=== PATIENT | male | born 1960 | race Caucasian/White ===

== ENCOUNTER 2022-11-07 09:01 | Emergency (ER) | payer OTHER ==
[~2022-11-07] VITALS: Ht 185.4 cm; Wt 140.6 kg
[2022-11-07] MEDS ORDERED: LASIX40 MG PO (09:18)
[2022-11-07] MEDS ORDERED: NORVASC5 MG PO (09:18)
[2022-11-07] MEDS ORDERED: JANTOVEN2.5 MG PO (09:18)
[2022-11-07] MEDS ORDERED: CRESTOR20 MG PO (09:19)
[2022-11-07] MEDS ORDERED: KAPSPARGO SPRIN25 MG PO (09:19)
[2022-11-07] MEDS ORDERED: ALDACTONE25 MG PO (09:19)
[2022-11-07] MEDS ORDERED: METFORMIN HCL500 M1 PO (09:20)
[2022-11-07] MEDS ORDERED: ZESTRIL40 MG PO (09:20)
[2022-11-07] MEDS ORDERED: NOVOLOG100 UNIT/1 SUB-Q (09:21)
[2022-11-07] MEDS ORDERED: PREDNISONE20 MG PO (11:45)
[2022-11-07] MEDS ORDERED: VENTOLIN HFA18 GM INH (11:45)
--- NOTE | 2022-11-08 21:34 | EKG ---
[facility] [address] [facility] [place] [address] Signed Undetermined rhythm Left axis deviation Anteroseptal infarct , age undetermined Abnormal ECG No previous ECGs available Confirmed by Kimberly Quan MD () on 11/08/2022 9:34:31 PM Electronically Signed By: KIMBERLY QUAN MD 11/08/22 2134 PATIENT NAME: HIMANSHU MINOR Electrocardiogram DATE OF : 58 PHYSICIAN: KIMBERLY QUAN MD REPORT #: [id number] REPORT IS CONFIDENTIAL AND NOT TO BE RELEASED WITHOUT AUTHORIZATION
== END 2022-11-07 15:45 | disposition home or self-care (01) ==
LOC: ED 09:01
DX: J44.1 Chronic obstructive pulmonary disease with (acute) exacerbation (principal); I25.2 Old myocardial infarction; I48.91 Unspecified atrial fibrillation; I10 Essential (primary) hypertension; Z79.899 Other long term (current) drug therapy; Z79.01 Long term (current) use of anticoagulants; Z79.4 Long term (current) use of insulin; Z20.822 Contact with and (suspected) exposure to COVID-19
CPT/HCPCS: 36415; 71045; 80053; 83880; 84484; 85025; 87502; 93005; 93010; 94640; 96374; 96375; 99285-25; C9803; J1815; J2930; U0003

== ENCOUNTER 2022-11-09 09:27 | Inpatient (IN) | payer OTHER ==
[~2022-11-09] VITALS: Ht 185.4 cm; Wt 126.8 kg
[~2022-11-09 09:27] MED LIST: ALDACTONE25 MG PO; CRESTOR20 MG PO; JANTOVEN2.5 MG PO; KAPSPARGO SPRIN25 MG PO; LASIX40 MG PO; METFORMIN HCL500 M1 PO; NORVASC5 MG PO; NOVOLOG100 UNIT/1 SUB-Q; PREDNISONE20 MG PO; VENTOLIN HFA18 GM INH; ZESTRIL40 MG PO
--- OUTSIDE RECORDS SUMMARY | 2022-11-09 09:35 | XMS ---
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 [facility] has no Care Guidelines for this patient. Kaity VISIT COUNT (12 MO.) 2 [facility] TOTAL 2 NOTE: Visits indicate total known visits. ED/[facility] VISIT TRACKING (12 MO.) [facility]22 09[facility] Emergency COMPLAINT: - SOB, IRREGULAR HEART RATE 11/07/2022 09:02 [facility] [place] TYPE: Emergency COMPLAINT: - SOB, IRREGULAR HEART BEAT INPATIENT VISIT TRACKING (12 MO.) No inpatient visits to display in this time frame [email or web address]
[2022-11-09] MEDS ORDERED: VENTOLIN HFA18 GM INH (15:22)
[2022-11-09] MEDS ORDERED: METOPROLOL SUCC25 MG PO (15:26)
[2022-11-09] MEDS ORDERED: INSULIN GL100 UNIT/2 SUB-Q (15:28)
[2022-11-09] MEDS ORDERED: NOVOLOG FL100 UNIT/1 SUB-Q (15:30)
--- NOTE | 2022-11-09 15:50 | NUR ---
PT IN ROOM WITH ADMIT ASSESSMENT COMPLETED.
--- NOTE | 2022-11-09 16:16 | NUR ---
PT ASSISTED INTO CHAIR IN ROOM PT REQUESTED TO USE HIS PHONE WHILE IT IS CHARGING. PT DENIES PAIN OR SHORTNESS OF BREATH. PT ON VAPOTHERM AT 25L @ 60%.
--- NOTE | 2022-11-09 16:16 | NUR ---
MED REC COMPLETE
--- NOTE | 2022-11-09 16:53 | NUR ---
PT BLOOD GLUCOSE GREATER THAN 400, AND PT REMAINS IN AFIB WITH RATES UP INTO THE 130S WITH ANY MOVEMENT. DR QUAN UPDATED VIA TELEPHONE. VERBAL ORDER TO GIVE LONG ACTING INSULIN SCHEDULED FOR LATER IN THE EVENING AT THIS TIME (SEE EMAR FOR ADMINISTRATION INFORMATION).
--- NOTE | 2022-11-09 17:05 | NUR ---
PT GIVEN INSULIN SLIDING SCALE AND LONG ACTING. PT DINNER BROUGHT IN TO ROOM. PT INFORMED OF PLAN TO GIVE THESE INSULIN DOSAGES AND THEN RECHECK BLOOD SUGAR IN ONE HOUR AND GIVE ADDITIONAL INSULIN WITH MEALS.
--- NOTE | 2022-11-09 18:11 | NUR ---
PT BLOOD SUGAR RECHECKED AND WAS 433. PT ASSISTED INTO BED AND VS OBTAINED. PT DENIES FURTHER NEEDS AT THIS TIME.
--- NOTE | 2022-11-09 18:41 | NUR ---
DR QUAN CALLED AND INFORMED OF BS OF 433. PER , HAVE CAREER PLACEMENT SERVICES COUNSELOR RECHECK BLOOD SUGAR AT 1930 AND CALL HIM BACK WITH THE RESULTS.
--- NOTE | 2022-11-09 21:00 | NUR ---
PATIENT PROVIDED WITH SCHEDULED MEDS. REPORTS FEELING "BETTER THAN WHEN I GOT HERE". DENIES SOB AT REST. TOLERATING VAPOTHERM 25L 50% Fi02. LUNG SOUNDS ARE COARSE IN UPPERS; DIM IN THE BASES. IV SL; WNL. DENIED PAIN OR GI UPSET. ACCU CHECK DONE; SSI PER ORDER. HR 115-130'S; SCHEDULED LOPRESSOR PROVIDED. PATIENT HAS A GOOD UNDERSTANDING OF THE PLAN OF CARE. CALL LIGHT IN REACH.
--- NOTE | 2022-11-09 21:42 | EKG ---
[facility] [address] [facility] [place] [address] Signed Atrial fibrillation with rapid ventricular response with premature ventricular or aberrantly conducted complexes Left axis deviation Anteroseptal infarct (cited on or before 07-NOV-2022) Abnormal ECG When compared with ECG of 07-NOV-2022 09:16, Previous EKG showed atrial fibrillation with RVR and PVCs Confirmed by Kimberly Quan MD () on 11/09/2022 9:42:00 PM Electronically Signed By: KIMBERLY QUAN MD 11/09/222141 PATIENT NAME: HIMANSHU MINOR Electrocardiogram DATE OF : 58 PHYSICIAN: KIMBERLY QUAN MD REPORT #: [id number] REPORT IS CONFIDENTIAL AND NOT TO BE RELEASED WITHOUT AUTHORIZATION
--- NOTE | 2022-11-09 22:15 | NUR ---
DISCUSSED PATIENT'S BLOOD GLUCOSE WITH MD. ORDERS TO CHECK AGAIN AT 0200 AND USE SSI COVERAGE. ALSO DISCUSSED PATIENT'S HR. ORDERS TO PROVIDE ORAL LOPRESSOR SCHEDULED FOR MORNING TONIGHT AND PRN IV LOPRESSOR. SEE EMAR.
--- NOTE | 2022-11-09 23:45 | NUR ---
PATIENT UP TO THE BATHROOM. 5L NC IN PLACE. PATIENT HAD BM AND RETURNED TO BED. MAINTAIN Sp02 >88% BUT BECAME INCREASINGLY SOB AND REQUEST A BREATHING TREATMENT. PATIENT SITTING AT EDGE OF BED. RT CALLED. LUNG SOUNDS ARE COASE THROUGHOUT. HR 120'S. PO LOPRESSOR PROVIDED PER ORDER.
--- NOTE | 2022-11-10 05:02 | NUR ---
PATIENT CALLED FOR A NEB TREATMENT. PATIENT TOLERATING VAPOTHERM 25L 50% Fi02. RT CALLED.
--- NOTE | 2022-11-10 07:20 | NUR ---
RECEIVED REPORT FROM OSWALDO COX. ASSUMING CARE OF PT. PT IN BED PLAYING ON PHONE WITH BLANKET COVERING HIM. PT CALL LIGHT WITHIN ROOM, IV SALINE LOCKED, VAPOTHERM AT 25L @ 50%.
--- NOTE | 2022-11-10 07:40 | NUR ---
PT ASSISTED INTO CHAIR IN ROOM WITH SBA. VAPOTHERM MOVED FOR PT COMFORT. PT MORNING MEDICATION AND ASSESSMENT COMPLETED. PT STATES HE HAS A HEADACHE.
--- NOTE | 2022-11-10 08:00 | NUR ---
WHILE PT WAS USING URINAL HIS HR INCREASED TO 140S. PT GIVEN PRN LOPRESSOR, PT DENIES CHEST PAIN AND SHORTNESS OF BREATH. PT SITTING IN CHAIR IN ROOM. PAIN MEDICATION PROVIDED FOR HEADACHE.
--- NOTE | 2022-11-10 09:14 | NUR ---
DR QUAN IN ROOM ASSESSING PT. DISCUSSED CARE MEASURES AND A1C.
--- NOTE | 2022-11-10 09:39 | NUR ---
IZA RT IN ROOM WITH PT. EDUCATING PT ON CORNET USE AND PT USING IT ON THE HIGHEST SETTING AND TOLERATING WELL.
--- NOTE | 2022-11-10 10:36 | NUR ---
PT RESTING IN CHAIR IN ROOM WITH CALL LIGHT WITHIN REACH. PT ON VAPOTHERM 25L @ 50%. PT WAS ASSISTED WITH BEDBATH BY GANG KNIFE FISH CHOPPER. STATES HE IS FEELING BETTER AND HAPPY TO BE CLEAN. DENIES PAIN OR SHORTNESS OF BREATH OR FURTHER NEEDS AT THIS TIME.
--- NOTE | 2022-11-10 11:50 | NUR ---
PT COMPLAINT OF FEELING UNWELL, PT ACCUCHECK AND VS OBTAINED. PT DENIES PAIN, NAUSEA, SHORTNESS OF BREATH. INFORMED THIS RN WOULD SPEAK WITH
--- NOTE | 2022-11-10 12:06 | NUR ---
PT GIVEN SLIDING SCALE INSULIN FOR ACCUCHECK OF 358. MD MADE AWARE OF ACCUCHECK AND PT COMPLAINT OF FEELING UNWELL. NO ADDITIONAL ORDERS AT THIS TIME, STATES IT IS DUE TO THE BODY REACTION TO NOW RECEIVING CARE. PT INFORMED. DENIES FURTHER NEEDS AT THIS TIME, PT EATING LUNCH.
--- NOTE | 2022-11-10 12:31 | NUR ---
PT LUNCH TRAY REMOVED, ATE 100%. PT SBA BACK TO BED PT REQUESTING TO TAKE A NAP. DENIES FURTHER NEEDS AT THIS TIME. CALL LIGHT AND BELONGINGS AT BEDSIDE.
--- NOTE | 2022-11-10 13:25 | NUR ---
PT SLEEPING DID NOT DISTRUB. WILL CHECK BACK
--- NOTE | 2022-11-10 13:30 | NUR ---
PT RESTING IN BED, CALL LIGHT WITHIN REACH AND BEDRAIL UP FOR SAFETY. PT EYES CLOSED AND RESPIRATIONS EVEN AND UNLABORED.
--- NOTE | 2022-11-10 14:33 | NUR ---
PT CALLED, REQUESTING TO USE BATHROOM. PT SBA TO BATHROOM AND EDUCATED ON HOW TO CALL WHEN FINISHED.
--- NOTE | 2022-11-10 14:42 | NUR ---
PT ASSISTED FROM BATHROOM AND INTO CHAIR IN ROOM. PT EDUCATED ON DISEASE PROCESS AND TREATMENTS, VERBALIZING UNDERSTANDING. AFTERNOON MEDICATION PROVIDED AND CALL LIGHT WITHIN REACH.
--- NOTE | 2022-11-10 15:30 | NUR ---
PT RESTING IN CHAIR IN ROOM PLAYING ON PHONE. CALL LIGHT WITHIN REACH AND PT BELONGINGS AT BEDSIDE. DENIES NEEDS AT THIS TIME.
--- NOTE | 2022-11-10 16:21 | NUR ---
PT PLACED ON IV ABX. SITTING IN CHAIR WAITING FOR DINNER. DENIES NEEDS AT THIS TIME. RT TITRATED HIS VAPOTHERM FI02 SETTING TO 40%. PT TOLERATING WELL.
--- NOTE | 2022-11-10 16:49 | NUR ---
DR QUAN INFORMED OF ELEVATED BLOOD SUGAR OF 380. NO ADDITIONAL ORDERS AT THIS TIME.
--- NOTE | 2022-11-10 17:45 | NUR ---
PT GIVEN INSULIN WITH DINNER. PT TOLERATED WELL, EATING MEAL. PT SITTING IN CHAIR IN ROOM WITH CALL LIGHT WITHIN REACH. VAPOTHERM AT 25L @40%.
--- NOTE | 2022-11-10 18:20 | NUR ---
PT SITTING IN CHAIR IN ROOM WATCHING TV AND PLAYING ON PHONE. CALL LIGHT WITHIN REACH AND PT BELONGINGS AT BEDSIDE. DENIES NEEDS AT THIS TIME.
--- NOTE | 2022-11-10 19:45 | NUR ---
PATIENT RESTING IN RECLINER PLAYING ON HIS PHONE. URNAL EMPTIED OF CLEAR YELLOW URINE. PATIENT DENIED ANY CONCERTS. ON VAPOTHERM 25L 40%. RT IN FOR NEB TREATMENT.
--- NOTE | 2022-11-10 21:15 | NUR ---
PATIENT PROVIDED SCHEDULED AND PRN MEDS. HR 105-115 AT REST. VS STABLE. LUNG SOUNDS ARE COARSE WITH SOME EX WHEEZE IN JANETH. PATIENT TOLERATING 6L NC. REPORTS FEELING IMPROVED. LESS SOB WITH ACTIVITY THEN PREVIOUS NIGHT. PATIENT ASSISTED INTO BED AND POSITIONED FOR COMFORT. PATIENT REQUIRES MOSTLY CORD MANAGEMENT. CALL LIGHT IN REACH. LIGHTS DIMMED.
--- NOTE | 2022-11-11 00:07 | NUR ---
PATIENT ASSISTED TO SIT UP AT THE EDGE OF THE BED. PROVIDED WITH A DIET APPROPRIATE SNACK. PATIENT TOLERATING 4L NC.
--- NOTE | 2022-11-11 00:40 | NUR ---
patient provided with prn neb treatment. lung sounds are a general rub on expiration throughout. rr 24. Sp02 95% on 4l NC
--- NOTE | 2022-11-11 04:39 | NUR ---
CALL LIGHT ANSWERED, pt UP FROM BATHROOM SBA AND BACK TO BED. pt REPORTS UNMEASURED VOID AND NO BM. OUTPUT CHARTED, NO DISTRESS NOTED, CALL LIGHT IN REACH. NO ADDITIONAL NEEDS OR CONCERNS VERBALIZED.
--- NOTE | 2022-11-11 07:48 | NUR ---
RECEIVED REPORT FROM OSWALDO COX. ASSUMING CARE OF PT. PT SALINE LOCKED WITH IV IN RIGHT HAND, ON 4L NC AND TOLERATED WELL. HR 110-130S. LUNG SOUNDS EXPIRATORY RUB IN ALL AREAS. BOWEL SOUNDS ACTIVE, DENIES PAIN OR NAUSEA. PT HAS IRREGULAR HEART BEAT WITH HISTORY OF AFIB. PT DENIES PAIN OR SHORTNESS OF BREATH AT THIS TIME. PT IS SITTING IN CHAIR EATING BREAKFAST. CALL LIGHT WITHIN REACH.
--- NOTE | 2022-11-11 08:00 | NUR ---
DISCUSSED PT HEART RATE WITH DR QUAN. PLAN ESTABLISHED TO INCREASE ORAL METOPROLOL TO BID (SEE EMAR).
--- NOTE | 2022-11-11 09:12 | NUR ---
PATIENT SITTING UP IN RECLINER, VITALS AND I&OS CHARTED. CALL LIGHT IN EASY REACH, NO OTHER NEEDS AT THIS TIME.
--- NOTE | 2022-11-11 09:22 | NUR ---
PT RESTING IN CHAIR IN ROOM. CALL LIGHT WITHIN REACH AND BELONGINGS AT BEDSIDE. PT ON 4L NC AND IV SALINE LOCKED. DENIES PAIN OR SHORTNESS OF BREATH AT THIS TIME.
--- NOTE | 2022-11-11 09:35 | NUR ---
PT RESTING IN BED, ULTRASOUND IN ROOM COMPLETING A CAROTID ULTRASOUND ON PT.
--- NOTE | 2022-11-11 10:25 | NUR ---
RT IN ROOM WITH PT COMPLETING A HOME QUALIFIER TEST.
--- NOTE | 2022-11-11 10:54 | NUR ---
PT AMBULATED TO BATHROOM AND BACK TO HAVE BOWEL MOVEMENT. HEART RATE UP INTO THE 130S WITH ACTIVITY AND PT VISIBLY SHORT OF BREATH.PT NOW RESTING INC HAIR. HEART RATE DOWN TO 110 AT REST. BREATHING LESS LABORED. CALL LIGHT WITHIN AND PERSONAL BELONGINGS WITHIN REACH.
--- NOTE | 2022-11-11 11:00 | NUR ---
PT SITTING IN CHAIR IN ROOM, CALL LIGHT WITHIN REACH AND BELONGINGS AT BEDSIDE. PT DENIES PAIN OR NEEDS. PT ON 3L NC AND TOLERATING WELL. IV SALINE LOCKED. PT USING CORNET TO ASSIST WITH LUNG MOVEMENTS.
--- NOTE | 2022-11-11 11:42 | NUR ---
PT COMPLAINT OF 5/10 HEADACHE. MEDICATION PROVIDED FOR PAIN. WILL REASSESS AFTER LUNCH FOR CONTINUED PAIN.
--- NOTE | 2022-11-11 12:59 | NUR ---
REPORT RECEIVED FROM BROOKE DELGADILLO. AWAITING PTS ARRIVAL TO MED/SURG.
--- NOTE | 2022-11-11 13:02 | NUR ---
REPORT GIVEN TO NIC COX.
--- NOTE | 2022-11-11 13:32 | NUR ---
PT ARRIVED FROM CCU BY CHAIR. PT ALERT AND ORINTED TO ALL. PT DENIES PAIN AND NAUSEA. IV FLUISHED AND SALINE LOCKED. ALCOHOL CAP APPLIED. INSPIARTOARY WHEEZE NOTED IN UPPER LOBED. TIGHT DEMINISHED SOUNDS IN LOWER LOBES. DYSPENY ON EXRETION CONTINUES. RT CALLED, AND TO BEDSIDE FOR BREATHING TREATMENT. OCCATIONAL COUGH ESPICALLY WITH ACAPELLA USE, NO NONPRODUCTIVE. PT REMAINS ON 4L O2 BY NC WITH OXGYEN SATUARTIONS 90-93%. AFIB RYTHEM CONTINUES ON MONITOR. HEART RATE 90-110'S. MINIMAL +1 EDEMA NOTED IN BLE. SKIN UNCHANGED. CASE MANAGEMENT TO BEDSIDE TO VISIT WITH PT. PT REQUESTS A NEBULIZER FOR DISCHARGE WELL, MESSAGE SENT TO MD. PT WEANED TO 3L O2 BY NC BY RT. NO ADDITONAL NEEDS AT THIS TIME. CALL LIGHT WITHIN REACH.
--- NOTE | 2022-11-11 13:37 | NUR ---
INTO SPEAK WITH PATIENT, PATIENT SITTING UP IN CHAIR. NIC COX AT BEDSIDE. CASE MANAGEMENT ASSESSMENT COMPLETED. PATIENT STATES HE LIVE ALONE IN AN RV WITH HIS DOGS. 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 PATIENT DOES NOT REQUIRE DME AT HOME. HE NORMALLY DOES NOT REQUIRE O2 AT HOME. DISCUSSED WITH PATIENT THAT PER HIS O2 QUALIFIER HE WILL NEED O2 AT DISCHARGE. ADVISED OF O2 COMPANIES, PATIENT WOULD LIKE TO GO TO [facility]. PATIENT STATES HE WOULD ALSO LIKE THE SMALLEST CONCENTRATOR POSSIBLE HE LIVES IN A SMALL RV. ADVISED I WILL SEND O2 ORDERS TO [facility] AND CONTACT THEM TO DISCUSS. PATIENT STATES HE HAS NO FINANCIL OR RESOURCE NEEDS AT THIS TIME.
--- NOTE | 2022-11-11 14:17 | NUR ---
FACESHEET, O2 QUALIFIER, H&P AND PROGRESS NOTES FAXED TO [facility] .
--- NOTE | 2022-11-11 14:41 | NUR ---
HOURLY ROUNDING: PT REMAINS UP TO CHAIR, RESTING WITH EYES CLOSED. PT AWAKENS TO MOVEMENT IN THE ROOM. URINAL EMPTIED OF 450ML CLEAR YELLOW URINE. PT DENIES PAIN AND NAUSEA. PT TOELRATING 3L O2 BY NC WITH OXGYEN SATURATION OF 90%. PT DENIES ADDITIONAL REQUESTS OR COMPLAINTS. CALL LIGHT WIHTIN REACH.
--- NOTE | 2022-11-11 16:02 | NUR ---
AROUND 1545 PATIENT GOT INTO THE SHOWER. I WASHED HIS BACK AND FEET. PATIENT DID THE REST. CHANGED HIS TELE LEAD STICKERS. PATIENT IS SITTING UP IN CHAIR.
--- NOTE | 2022-11-11 16:15 | NUR ---
THIS RN TO ROOM TO CHECK ON PT. MEDICATION DUE. PT FINISHED WITH SHOWER AND BACK TO CHAIR. PT STATES "I FEEL SO GOOD AFTER THAT SHOWER." PT DENIES PAIN AND NAUSEA. OXGYEN SATURATION OF 90% ON 3L O2 BY NC. MEDICATION GIVEN (SEE MAR). IV ASSESSED, WNL. NO ADDITIONAL REQUESTS OR COMPLAINTS. CALL LIGHT WITHIN REACH. BED RAILS UP.
--- NOTE | 2022-11-11 17:15 | NUR ---
PT FINISHED WITH DINNER. INSULIN GIVEN. PT DENIES PAIN AND NAUSEA. PT CONTINUES TO TOLERATE 3L O2 BY NC WITH OXGYEN SATURATION OF 90%. PT DENIES ADDITIONAL REQUESTS OR COMPLAINTS. CALL SERGIO DAVID.
--- NOTE | 2022-11-11 17:23 | NUR ---
PT HERE FOR HUYPOXIC RESPIRATORY FAILURE AND COPD EXACERBATION. PT UP WITH STAND BY ASSIST TO SHOWER, RESTROOM, AND CHAIR THIS SHIFT. PT TOLERATING 60G CARB DIET WITH EXCELLENT APPITITE. BLOOD SUGAR CHECKS WITH SCHEDULED AND SLIDING SCALE INSULIN GIVEN. TELEMETRY MONITORING IN AFIB RYTHEM WITH HEART RATE 90-110'S, MEDICATION GIVEN. PT REMAINS ON 3-4 L O2 BY NC THIS SHIFT TO MAINTAIN OXGYEN SATRUATIONS 88-93%. PT TOLERATES 3L O2 BYNC WELL EVEN WITH ACITVITY. IV ABX GIVEN. HOME OXYGEN QUALIFICATION COMPLETED.PT VOIDING QUANTITIY SUFFICIENT. PT USES CALL LIGHT AND MAKES NEEDS KNOWN.
--- NOTE | 2022-11-11 17:56 | NUR ---
PT CALL LIGHT ON. PT REPORTS HIS RIGHT HAND IV SITE IS PAINFUL. IV ASSESSED, FLUSHES WELL BUT CONTINUES TO BE PAINFUL. NO SWELLING NOTED. IV DC'D PER PROTOCOL. NEW IV STARETED TO LEFT FORARM PER PROTOCOL, BRISK BLOOD RETURN NOTED. REMAINDER OF IV ABX INFUSING GOING THROUGH LEFT FORARM IV SITE. PT DENIES ADDITIONAL PAIN OR NAUSEA. VITAL SIGNS STABLE. NO ADDITIONAL REQUESTS OR COMPLAINTS. CALL LIGHT WITHIN REACH.
--- NOTE | 2022-11-11 18:07 | NUR ---
PUMP ALARMING, INFUSION AND FLUSH COMPLETE. IV FLUSHED AND SALINE LOCKED, ALCOHOL CAP APPLIED. PT DENIES PAIN AND NAUSEA. EDUCATION DONE WITH PT REGARDING HOME OXGYEN USE. PT VERBLAIZES UNDERSTANDING AND STATES HIS QUESTIONS HAVE BEEN ANSWERED. PT DECLINES GETTING BACK TO BED AT THIS TIME STATING HE LIKES BEING UP IN THE CHAIR. PT DENIES ADDITONAL REQUESTS OR COMPLAINTS. CALL LIGHT WITHIN REACH.
--- NOTE | 2022-11-11 19:41 | NUR ---
received report from offgoing shift, hourly rounding initiated.
--- NOTE | 2022-11-11 21:23 | NUR ---
IN PT ROOM FOR MEDICATION ADMINISTRATION AND ASSESSMENT. PT NO COMPLAINT OF PAIN OR DISCOMFORT, CALL LIGHT IN REACH.
--- NOTE | 2022-11-12 00:07 | NUR ---
PT TELEMETRY SHOWED HR 140+ - WENT TO ROOM TO CHECK ON PT AND HE WAS FOUND TO BE UP USING URINAL, NO COMPLAINT OF PAIN OR DISCOMFORT, ASYMPTOMATIC. PT DENIED DISCOMFORT, WILL CONTINUE TO MONITOR.
--- NOTE | 2022-11-12 00:12 | NUR ---
IN PT ROOM FOR ROUNDING, PT RESTING, BREATHING EVEN AND UNLABORED, NO COMPLAINT OF PAIN OR DISCOMFORT, CALL LIGHT IN REACH.
--- NOTE | 2022-11-12 02:01 | NUR ---
IN PT ROOM FOR ROUNDING. PT RESTING, BREATHING EVEN AND UNLABORED, CALL LIGHT IN REACH.
--- NOTE | 2022-11-12 04:17 | NUR ---
IN PT ROOM TO RESET TELEMETRY LEADS. PT RESTING EASY, BREATHING EVEN AND UNLABORED, CALL LIGHT IN REACH.
--- NOTE | 2022-11-12 05:32 | NUR ---
IN PT ROOM FOR ROUNDING, PT RESTING COMFORTABLY, CALL LIGHT IN REACH, BREATHING EVEN AND UNLABORED.
--- NOTE | 2022-11-12 07:04 | NUR ---
REPORT RECEIVED FROM BROOKE MARTÍNEZ. PT UP TO CHAIR. PT REPORTS 5/10 HEADACHE. COOL CLOTH PROVIDED, COFFEE PROVIDED. PT REQUESTS TYELNOL, SEE MAR FOR MEDICATION GIVEN. PT DENIES ADDDITIONAL REQUESTS OR COMPLAINTS. CALL LIGHT WITHIN REACH.
--- NOTE | 2022-11-12 07:34 | NUR ---
MORNING ASSESSMENT AND MEDICATION DUE. PT REMAINS UP TO CHAIR. PT REPORTS HEADACHE IS IMPROVING, NOW 2/10. ADDITIONAL COFFEE PROVIDED. PT DENIES NAUSEA. PT ALERT AND ORIENTED TO ALL. LUNG SOUNDS TIGHT IN LOWER LOBES WITH EXPIRATROY WHEEZE NOTED, RUB HEARD IN UPPER LOBES. BREATHING TREATEMENT OFFERED AND PT ACCEPTS, RT TO BEDSIDE WITH NEBULIZER. PT USING ACAPELLA. PT REPORTS COUGHING UP SMALL AMOUNTS OF THICK SILVA SPUTUM, NONE SEEN AT THISTIME. PT REPORTS HE CONTINUES TO HAVE OCCATIONAL DIZZINESS AND DISEQUALIBRIUM. PT REPORTS IT USUALLY RESOLVES WITH TIME AND DEEP BREATHS. AFIB CONTINUES ON TELEMETRY MONITORING WITH HEART RATE IN THE 90'S AT THIS TIME. MEDICATIONS GIVEN. PHARMACIST CALLED REGARDING ENOXAPARIN DOSE. PHARMACIST REQUESTS WEIGHT. STANDING WEIGHT TAKEN AND DOSE ADJUSTMENTS MADE. PT REMAINS UP TO CHAIR. NO ADDITIONAL REQUESTS OR COMPLAINTS. CALL LIGHT WITHIN REACH.
--- NOTE | 2022-11-12 08:03 | NUR ---
PATIENT IN CHAIR PREVIOUS TO SHIFT. URINAL EMPTIED. AM CARE AND ACU CHECK COMPLETED. CALL LIGHT WITHIN REACH.
--- NOTE | 2022-11-12 09:12 | NUR ---
PATIENT IN CHAIR AFTER MEAL. VITALS AND I/O'S COMPLETED. CALL LIGHT WITHIN REACH.
--- NOTE | 2022-11-12 09:26 | NUR ---
HOURLY ROUNDING: PT REMAINS UP TO CHAIR. PT REPORTS HEADACHE REMAINS WELL CONTROLLED AT 2/10 AT THIS TIME. PT DENIES NEED FOR ADDITIONAL PAIN MEDICATION. PT REPORTS HE SPOKE WITH THE DOCTOR DURING HIS ROUNDS AND VERBALIZES UNDERSTANDING OF PLAN OF CARE. PT STATES ALL HIS QUESTIONS HAVE BEEN ANSWERED. STAND BY ASSIST UP TO RESTROOM TO VOID. PT PERFORMS SELF THOMAS CARE. PT MAINTAINS OXGYEN SATURATIONS WITH ACITVITY AND REPORTS SHORTNESS OF BREATH WITH ACTIVITY HAS IMPROVED. HEART RATE UP TO 130-140'S WITH ACTIVITY. PT REPORTS HE DID FEEL DIZZY AT TIMES WITH ACTIVITY. HEART RATE RETURNS TO 100-110'S ONCE BACK TO CHAIR ADN RESTING. OXGYEN SATURATION MAINTAINS 89-93% ON 3L O2 BY NC. PT DENIES ADDITIONAL REQUESTS OR COMPLAINTS. CALL LIGHT WITHIN REACH.
--- NOTE | 2022-11-12 09:54 | NUR ---
DR QUAN UPDATED REGARDING PTS HEART RATE WITH ACTIVITY AND AT REST WELL DIZZINESS AND ASSESSMENT. MEDICAITON ADJUSTMENTS MADE.
--- NOTE | 2022-11-12 10:07 | NUR ---
MEDICATION GIVEN TO PT. PT REMAINS UP TO CHAIR. HEART RATE REMAINS 100-120'S. PT UPDATED ON MEDICATION ADJUSTMENTS AND PLAN OF CARE. PT VERBALIZES UNDERSTANIND AND STATES HIS QUESTIONS HAVE BEEN ANSWERED. NO ADDITONAL REQUESTS OR COMPLAINTS AT THIS TIME. CALL LIGHT WITHIN REACH.
--- NOTE | 2022-11-12 10:10 | NUR ---
enoxaparin dose changed to 120mg BID as weight = 126kg.
--- NOTE | 2022-11-12 11:16 | NUR ---
THIS RN TO ROOM TO CHECK ON PT. PT REMAINS UP TO CHAIR, RESTING WITH EYES CLOSED. RESPIRATIONS EVEN AND UNLABORED. PT ALLOWED TO REST. CALL LIGHT WITHIN REACH. BED RAILS UP.
--- NOTE | 2022-11-12 12:00 | NUR ---
LUNCH DELIVERED TO PT. PT AWAKENS TO MOVEMENT IN THE ROOM TO EAT. MEDICATION GIVEN. PT REPORTS "FEELING BETTER" AFTER HIS NAP. PT DENEIS PAIN AND NAUSEA. NO ADDITIONAL REQUESTS OR COMPLAINTS. CALL LIGHT WITHIN REACH.
--- NOTE | 2022-11-12 13:22 | NUR ---
AFTERNOON ASSESSMENT AND MEDICATION DUE. PT REMAINS UP TO CHAIR. PTS FRIEND, BONILLA, ARRIVED TO VISIT WITH PT. PT DENEIS PAIN AND NAUSEA, STATES HEADACHE HAS RESOLVED. PT ALERT AND ORIENTED TO ALL. PT DENIES ANY SIGNS OR SYMPTOMS OF NEUROPATHY. PT REPORTS HE WOULD LIKE TO AMBULATE AFTER HIS VISIT WITH HIS FRIEND. LUNG SOUNDS CLEAR IN UPPER LOBES, TIGHT IN BASES WITH INSPIRATORY WHEEZE NOTED IN RIGHT LOWER LOBE. LOWER LOBES DEMINISHED. LOOSE COUGH CONTINUES AT TIMES. SMALL AMOUNTS OF SILVA SPUTUM NOTED. PT CONTINUES TOLERATING 3L O2 BY NC WITH OXGYEN SATURATIONS 89-93%. TELEMETRY MONITORING CONTINUES. HEART RATE CURRENTLY 90-110'S. PT REPORTS FEELINGS OF DIZZINESS HAVE IMPROVED, LESS FREQUENT THIS AFTERNOON. +1 PITTING EDEMA UNCHANGED TO BLE. SHOWER OFFERED, DECLINED. PT CONTINUES VISISTING WITH HIS FRIEND. NO ADDITIONAL REQUESTS OR COMPLAINTS. CALL LIGHT WITHIN REACH.
--- NOTE | 2022-11-12 14:09 | NUR ---
PATIENT IN CHAIR VISITING WITH FRIEND. VITALS AND I/O'S COMPLETED. CALL LIGHT IN REACH.
--- NOTE | 2022-11-12 14:51 | NUR ---
THIS RN TO ROOM TO CHECK ON PT. PT REMAINS UP TO CHAIR. STAND BY ASSIST UP TO VOID. PT VOIDS 550ML CLEAR YELLOW URINE WIHT OUT ISSUE. HEART RATE REMAINS 100-120'S WITH ACTIVITY. PT REPORTS NO DIZZINESS WITH ACTIVITY THIS TIME. PT DENIES PAIN AND NAUSEA. PT DENIES SHORTNESS OF BREATH. NO ADDITONAL NEEDS AT THIS TIME. CALL LIGHT WITHIN REACH.
--- NOTE | 2022-11-12 16:13 | NUR ---
MEDICATION DUE. PT BACK FROM WALK AND REPORTS AMBULATION WENT REALLY WELL. PT REPORTS HE WAS ABLE TO "MAKE A COUPLE ROUNDS" AROUND THE [place] AND "FELT A BIT WINDED IN THE END" BUT NOTED THAT HE WAS NOT DIZZY AT ALL. HEART RATE CURRENTLY 100-110'S. PT DENIES PAIN AND NASUEA. MEDICATION GIVEN. NO ADDITIONAL REQUESTS OR COMPLAINTS. CALL LIGHT WITHIN REACH.
--- NOTE | 2022-11-12 16:28 | NUR ---
PT HERE FOR HYPOXIC RESPIRATORY FAILURE AND COPD EXACERBATION. PT UP WITH STAND BY ASSIST IN [place], TO RESTROOM, AND CHAIR THIS SHIFT. PT TOLERATING 60G CARB DIET WITH EXCELLENT APPITITE. BLOOD SUGAR CHECKS WITH SCHEDULED AND SLIDING SCALE INSULIN GIVEN. TELEMETRY MONITORING IN AFIB RYTHEM WITH HEART RATE 90-130'S, MEDICATION ADJUSTED THIS SHIFT WITH IMPROVED HERAT RATE THIS AFTERNOON. PT REMAINS ON 3L O2 BY NC THIS SHIFT AT REST AND WITH ACTIVITY TO MAINTAIN OXGYEN SATRUATIONS 88-93%. IV ABX GIVEN. PT VOIDNG LARGE AMOUNTS, PO LASIX GIVEN. EDUCATION DONE WITH PT REGARDING FLUID BALANCE AND HOME OXYGEN USE. PRN NEBULIZER TREATEMENTS GIVEN. PT REPORTS DIZZINESS AT TIMES, IMPROVED WITH MEDICAITON ADJUSTMENTS. PT USES CALL LIGHT AND MAKES NEEDS KNOWN.
--- NOTE | 2022-11-12 16:44 | NUR ---
PT WAS ABLE TO AMBULATE W/STBY ASSIST USING O2 TANK AT 4LNC/PULSEOX READ STEAY AT 93-94. HE AMBULATED 1.5X AROUND UNIT, NO COMPLAINTS OF PAIN OR UNSTEDINESS. BREATHING QUICKENED NEAR END OF WALK SO HE WANTED TO GO BACK TO HIS CHAIR AND TRY AGAIN LATER. HE STATED THAT HE FELT BETTER BEING ABLE TO GET UP AND WALK LONGER JUST OUT OF BREATH QUICKER THAN HE EXPECTED. PT BACK IN RELICNER, FEET ELEVATED, 94 O2 @ 3LNC. CALL LIGHT IN HAND.
--- NOTE | 2022-11-12 16:49 | NUR ---
DR JIANG CALLED REGARDING PTS BLOOD SUGAR. ORDERS GIVEN TO ADJUST PTS SLIDING SCALE INSULIN TO A "HIGH" SCALE RATHER THAN "MODERATE." PHARMACIST CALLED AND IS MAKING ADJUSTMENTS, REPEAT BACK PERFORMED.
--- NOTE | 2022-11-12 17:00 | NUR ---
PT DUE FOR INSULIN. 13 UNITS OF SS GIVEN, WITH 10 UNITS BOLUS. PT IS UP IN CHAIR, EATING DINNER. EDUCATION PROVIDED RE: S/SX OF HYPOGLYCIEMA. PT VERBALIZED UNDERSTANDING.
--- NOTE | 2022-11-12 17:41 | NUR ---
PATIENT IN CHAIR AFTER MEAL. VITALS AND I/O'S COMPLETED. CALL LIGHT WITHIN REACH.
--- NOTE | 2022-11-12 17:58 | NUR ---
PTS HEART RATE NOTED TO BE 130-140'S ON MONITORING. THIS RN TO ROOM. PT UP TO RESTROOM TO VOID, INDEPENDANTLY. PT BACK TO CHAIR AND HEART RATE RECOVERS TO 110'S WITHIN 1 MINUTE. PT DENIES ANY DIZZINESS WITH ACTIVITY. OXGYEN SATURATION REMAINS 90-93% ON 3L O2 BY NC. PT PAXTON PAIN OR NAUSEA. CALL LIGHT WITHIN REACH. NO ADDITIONAL REQUESTS OR COMPLAINTS.
--- NOTE | 2022-11-12 18:31 | NUR ---
THIS RN TO ROOM TO CHECK ON PT. PT REMAINS UP TO CHAIR, REPORTS HE IS "DOZING." PT DENIES PAIN AND NAUSEA. HEART REAT 106 AT THIS TIME ON TELEMETRY MONITORING WITH SOFIE MORGAN. PT DENIES REQUESTS OR COMPLAINTS. CALL LIGHT WITHIN REACH.
--- NOTE | 2022-11-12 19:14 | NUR ---
received report from offgoing shift, hourly rounding initiated.
--- NOTE | 2022-11-12 21:25 | NUR ---
in pt room for medication administration, vs, assessment. pt resting in chair, vs stable, no complaint of pain or discomfort. pt call light in reach.
--- NOTE | 2022-11-12 23:08 | NUR ---
IN PT COY FOR ROUNDING. PT RESTING ON BACK, BREATHING EVEN AND UNLABORED. CALL LIGHT IN REACH
--- NOTE | 2022-11-13 01:36 | NUR ---
in pt room for rounding. pt resting on side, call light in reach, telemetry in place. pt has no complaint of pain or discomfort.
--- NOTE | 2022-11-13 03:10 | NUR ---
IN PT ROOM FOR ROUNDING. PT RESTING ON SIDE, TELEMETRY IN PLACE, BREATHING EVEN AND UNLABORED, NO COMPLAINT OF PAIN OR DISCOMFORT, CALL LIGHT IN REACH.
--- NOTE | 2022-11-13 06:01 | NUR ---
IN PT ROOM FOR VS AND I&O'S. REST PT TELEMETRY, NOTICED A SPOT ON PT RLQ ABDOMEN THAT WAS BLEEDING. CLEANED WITH SALINE AND APPEARS TO BE SITE OF LOVENOX INJECTION BLEEDING, COVERED WITH GAUZE BANDAGE AND TAPE. PT UP TO CHAIR, CALL LIGHT IN REACH, NO COMPLAINT OF PAIN OR DISCOMFORT.
--- NOTE | 2022-11-13 07:35 | NUR ---
REPORT RECEIVED FROM BROOKE MARTÍNEZ. PT UP TO CHAIR. AWAKE AND ALERT. PT REPORTS 5/10 HEADACHE AND REQUESTS PAIN MEDICATION WITH HIS MORNING MEDICATIONS. PT DENIES NASUEA OR SHORTNESS OF BREATH. NO ADDITIONAL REQUESTS OR COMPLAINTS. CALL LIGHT WITHIN REACH.
--- NOTE | 2022-11-13 07:40 | NUR ---
PT AWAKE IN CHAIR WATCHING TV. CALL LIGHT IN REACH. NO FURTHER NEEDS AT THIS TIME.
--- NOTE | 2022-11-13 08:04 | NUR ---
MORNING ASSESSMENT AND MEDICATION DUE. PT UP TO CHAIR, BREAKFAST DELIVERED TO PT. PT CONTINUES TO REPORTS 5/10 HEADACHE. TYELNOL GIVEN AND COFFEE PROVIDED. PT DENIES NAUSEA. PT ALERT AND ORIENTED TO ALL. PT DENIES ANY DIZZINESS OR CONFUSTION TODAY. SOFIE MORGAN CONTINUES ON TELEMETRY MONITORING WITH RATE 80-90'S AT THIS TIME. LUNG SOUNDS CLEAR THROUGHOUT, NO WHEEZES NOTED. PT REPORTS "YEAH, I FEEL LIKE I'M BREATHING BETTER TODAY." LOWER LOBES TIGHT AND DEMINISHED BUT CLEAR. OCCATIONAL LOOSE COUGH WITH SILVA SPUTUM PER PT. NO COUGH OR SPUTUM NOTED AT THIS TIME. OXGYEN SATURATIONS 96% ON 3L O2 BY NC. PT WEANED TO 2L O2 BY NC TO PREVENT CO2 RETENTION. PT MAINTAINS OXGYEN SATUARTION 89-94% ON 2L O2 BY NC. EDEMA REMAINS +1 TO BLE, APPERAS MILDLY IMPROVED. BRUISES NOTED OVER ABDOEN AT LOVENOX INJECTIONS SITES WELL TWO SMALL PIN POINT SCABS TO RIGHT SIDE OF ABDOMEN THAT ARE LEAKING SMALL AMOUNTS OF RED DRAINAGE. GAUZE AND TAPE APPLIED. PT REPORTS HE FEELS READY FOR DISCHARGE STATING, "I FEEL BETTER NOW THAN I HAVE IN QUITE A WHILE ACTUALLY." PT EATING BREAKFAST. NO ADDITIONAL REQEUSTS OR COMPLAINTS. MEDICATIONS GIVEN. CALL LIGHT WITHIN REACH.
--- NOTE | 2022-11-13 09:32 | NUR ---
THIS RN TO ROOM TO CHECK ON PT. PT UP TO CHAIR. PT REPORTS HEADACHE IS IMPROVING NOW 01/13. PT DECELINES ADDITIONAL COFFEE OR COOL CLOTHES. PT DENIES NEED FOR ADDITIONAL PAIN MEDICATION. PT REPORTS HE WOULD LIKE TO NAP A BIT SINCE HE "DIDN'T SLEEP VERY WELL LAST NIGHT." PT REPORTS HE SPOKE WITH THE DOCTOR AND VERBALIZES UNDERSTANDING OF PLAN OF CARE AND STATES HIS QUESTIONS HAVE BEEN ANSWERED. PT CONTINUES TO TOELRATE 2L O2 BY NC WITH OXGYEN SATURATIONS OF 93%. HEART RATE CONTINUES IN AFIB RYTHEM ON TELEMETRY MONITORING WITH HEART RATE IN THE 80'S. PT DENIES ADDITIONAL REQUESTS OR COMPLAINTS. CALL LIGHT WITHIN REACH.
--- NOTE | 2022-11-13 10:01 | NUR ---
THIS RN TO ROOM WITH DR QUAN FOR ROUNDS. PT UPDATED ON PLAN OF CARE AND STATES HIS QUESTIONS HAVE BEEN ANSWERED. PT DENIES ADDITIONAL REQUESTS OR COMPLAINTS. CALL LIGHT WITHIN REACH.
--- NOTE | 2022-11-13 10:36 | NUR ---
PT UP TO AMBULATE IN [place] X 1 LAP AND DOWN CARPETED HALLWAY. HEART RATE STABLE FORM 90-110. AFIB RYTHEM CONTINUES. PT RETURNS TO RATE OF 80'S ONCE RESTING.OXGYEN SATUARTION 93% ON 3L O2 BY NC WHILE AMBULATING AND 93% ON 2L ONCE RETURNED TO ROOM AND RESTING. PT DENIES PAIN AND NAUSEA PT STATES "I FEEL SO MUCH BETTER THAN BEFORE I CAME IN." PT STEADY ON FEET. NOW BMAT LEVEL 4. PT AWARE OF OXYGEN TUBING AND HOW TO MANAGE TUBING. STATES HE HAS EXPERIENCE FROM HOME. NO ADDITIONAL REQUESTS OR COMPLAINTS. CALL LIGHT DARCIMiracor Medical SystemsALEKSANDRA DAVID.
--- NOTE | 2022-11-13 11:18 | NUR ---
THIS RN TO ROOM TO CHECK ON PT. PT RESTING WITH EYES CLOSED, UP TO CHAIR. RESPIRATIONS EVEN AND UNLABORED. PT ALLOWED TO REST. CALL LIGHT WITHIN REACH.
--- NOTE | 2022-11-13 11:48 | NUR ---
LUNCH DELIVERD TO PT. BLOOD SUGAR CHECKED AND SCHEDULED WITH SLIDING SCALE INSULIN GIVEN. PT AWAKE AND EATING LUNCH. PT DENIES PAIN AND NAUSEA. NO ADDITIONAL NEEEDS AT THIS TIME. EDUCAITON DONE WITH PT REGARDING MONITORING CARBOHYDRATE INTAKE AND BLOOD SUGAR MANAGEMENT. PT VERBALIZES UNDERSTANDING AND IS ABLE TO REPEAT BACK THE INSLUIN HE USUALLY TAKES AT HOME INCLUDING 5 UNITES OF ASPART WITH EACH MEAL AND 39 UNITS OF LONG ACTING INSULIN DAILY AT NIGHT. PT DENIES ADDITIONAL NEEDS. CALL LIGHT WITHIN REACH.
--- NOTE | 2022-11-13 13:23 | NUR ---
AFTERNOON ASSESSMENT AND MEDICAITON DUE. PT FINSHED WITH LUNCH, REMAINS UP TO CHAIR. PT DENIES PAIN AND NASUEA. PT ALERT AND ORIRENTED TO ALL AND CONTINUES TO STATE HE IS FEELIGN "REALLY GOOD." OXGYEN SATURATION NOTED TO BE 96% ON 2L O2 BY NC. ROOM AIR TRIAL ATTEMPTED. PT MAINTAINS OXYGEN SATURATIONS 89-93%. LUNG SOUNDS CORSE IN UPPER AIRWAYS, CLEARS WITH COUGH AND ANDUJAR SPUTUM PRODUCTION. UPPER LOBES NOW CLEAR. INSPIRATORY WHEEZE NOTED IN RIGHT LOWER LOBE. DEMINISHED TIGHT SOUNDS IN LEFT LOWER LOBE. PT REQUESTS A BREATHING TREATMENT. RT CALLED. HEART SOUNDS REMAIN IRREGULAR WITH HEART RATE IN THE 80-90'S. 86 APICAL HEART RATE AT THIS TIME. PT DEMONSRATES USE OF ACCAPELLA X10. BRUISES AND SCABS TO ABDOMEN REMAIN UNCHNAGED. PT DENIES ADDITIONAL REQUESTS OR COMPLAINTS. CALL LIGHT WITHIN REACH.
--- NOTE | 2022-11-13 14:34 | NUR ---
PT IS UP IN CHAIR, PLAYING ON HIS PHONE. HE REPORTS NO SOB, DIFFICUTLY BREATHING, OR DIZZINESS. SPOT CHECK OF O2, 87% ON ROOM AIR. PT DECLINED TO REPLACE O2. REPORTED HE HAD JUST COME BACK FROM THE BATHROOM AND HAD BEEN AMBULATING IN THE ROOM. WILL SPOT CHECK AGAIN. NO ADDITIONAL NEEDS OR CONCERNS.
--- NOTE | 2022-11-13 15:01 | NUR ---
REPORT GIVEN TO BROOKE DUMONT WHO IS ASSUMING CARE OF PT. PT UPDATED ON PLAN OF CARE. PT NOTED TO BE 85-87% ON ROOM AIR. PT PLACED BACK ON 1L O1 BY NC AND OXGYEN SATURATIONS CLIMB TO 90-92%. PT DEMONSTRATES USE OF ACAPELLA. PT DENIES PAIN AND NAUSEA. NO ADDITIONAL REQUESTS OR COMPLAINTS. CALL LIGHT WITHIN REACH.
--- NOTE | 2022-11-13 15:02 | NUR ---
PT HERE FOR HYPOXIC RESPIRATORY FAILURE AND COPD EXACERBATION. PT UP WITH STAND BY ASSIST IN [place], TO RESTROOM, AND CHAIR THIS SHIFT. PT TOLERATING 60G CARB DIET WITH EXCELLENT APPITITE. BLOOD SUGAR CHECKS WITH SCHEDULED AND SLIDING SCALE INSULIN GIVEN. TELEMETRY MONITORING DC'D PTS HEART RATE IS MUCH IMPROVIED WITH RATE NOW 80-90'S AT REST AND 90-110 WITH ACTIVITY. ROOM AIR TRIAL ATTEMPTED THIS SHIFT WITH OXGYEN SATUARTIONS EVENTUALLY DROPPING TO 85%. PT REMAINS ON 1L O1 BY NC AT REST TO MAINTAIN OXGYEN OXGYEN SATRUATIONS 89-93%. IV ABX GIVEN. PT VOIDING LARGE AMOUNTS, PO LASIX GIVEN. EDUCATION DONE WITH PT REGARDING FLUID BALANCE AND DIABETIES PRN NEBULIZER TREATEMENTS GIVEN. PT DENIES DIZZINESS THIS SHIFT. PT USES CALL LIGHT AND MAKES NEEDS KNOWN.
--- NOTE | 2022-11-13 15:12 | NUR ---
PT IS SLEEPING IN HIS CHAIR, O2 ON, NO DISTRESS NOTED. REPORT COMPLETE WITH OFF-GOING NURSE. NO NEEDS AT THIS TIME.
--- NOTE | 2022-11-13 16:29 | NUR ---
PT WAS IN BATHROOM, WALKED TO CHAIR INDEPENDENTLY. REPORTED NO SOB, CHEST PAIN, OR DIZZINESS. IV ABX STARTED PER ORDER. EDUCATION PROVIDED ON WARFARIN. NO NEEDS OR CONCERNS NOTED.
--- NOTE | 2022-11-13 17:13 | NUR ---
ROUNDING AND MEDICATIONS DUE. PT IS SITTING IN THE CHAIR, IV ALARM BEEPED I CAME IN. DISCONTECTED IV ABX AND PREFORMED IV CARE. DINNER ARRIVED. PT WAS UP IN CHAIR EATING DINNER. NO NEEDS OR CONCERNS NOTED.
--- NOTE | 2022-11-13 21:25 | NUR ---
pt SITTING UP IN CHAIR, SPO2 91% WITH 1L OXYGEN BY NC IN PLACE. CBG 292, SS INSULIN ADMINISTERED. SCHEDULED MEDICATIONS ADMINISTERED, EDUCATION PROVIDED. ASSESSMENT COMPLETE. WHEEZES AUSCULTATED THROUGHOUT LUNG LOBES. RT IN ROOM FOR BREATHING TREATMENT. CALL LIGHT IN REACH. SNACK PROVIDED. NO ADDITIONAL REQUESTS.
--- NOTE | 2022-11-13 23:40 | NUR ---
pt RESTING IN BED ON RIGHT SIDE. 1L OXYGEN BY NC IN PLACE. BREATHING UNLABORED, NO DISTRESS NOTED.
--- NOTE | 2022-11-14 06:37 | NUR ---
NO ACUTE EVENTS OVERNIGHT. PT STATES HE DID NOT SLEEP WELL. MAY NEED SLEEP AID @[facility]. WILL ENDORSE TO ONCOMING RN. JUNA A. MEDICATED PER MAR FOR REPORTED PAIN CHARTED. WILL CONTINUE TO MONITOR AND FOLLOW POC.
--- NOTE | 2022-11-14 07:18 | NUR ---
REPORT RECEIVED FROM BROOKE MOHAMUD. PT GETTING UP TO CHAIR FOR BREAKFAST WITH STAND BY ASSIST FROM [facility]. PT NOTED THAT HIS OXYGEN "FELL OFF" WHILE HE WAS SLEEPING. OXGYEN SATURATIONS CURRENTLY 90-94% ON ROOM AIR. PT APPEARS TO BE TOLERATING ROOM AIR AT THIS TIME. MAINTAINS WHILE GETTING UP TO CHAIR. PT REPORTS HEADACHE HAS IMPROVED, NOW AT 2/10. PT DENIES NEED FOR ADDITIONAL MEDICATION. PT REPORTS HE DID NOT SLEEP WELL LAST NIGHT. PT ENCORUAGED TO CONTINUE RESTING. PT REPORTS HE SLEEPS "BETTER IN THE RECLINER." NO ADDITIONAL REQUESTS OR COMPLAINTS. CALL LIGHT WITHIN REACH.
--- NOTE | 2022-11-14 08:37 | NUR ---
MORNING ASSESSMENT AND MEDICAITON DUE. PT UP TO CHAIR AND FINISHED WITH BREAKFAST. PT DENIES PAIN AND NAUSEA. PT CONTINUES TO REPORT HE IS FEELING "SO MUCH BETTER." PT REPORTS HEADACHE HAS RESOLVED. ADDITIONAL COFFEE PROVIDED. PT REPORTS HE ONLY HAS RIDE HOME UNTIL 1030. CASE MANAGEMENT NOTIFIED AND WORKING ON DISCHARGE PLANNING. PT ALERT AND OREINTED TO ALL. PT CONTINUES TO TOLERATE ROOM AIR WITH OXGYEN SATURATIONS 89-92%. RUB HEARD THROUGHOUT LUNG KNAPP. PT DENIES NEED FOR A BREATHING TREATEMENT. OCCATIONAL COUGH WITH SILVA SPUTUM CONTINUES. GOOD AIR MOVEMENT HEARD THROUGHOUT LUNG KNAPP. HEART TONES REMAIN IRREGULAR. HEART RATE 80-90'S AT THIS TIME. EDEMA TO BLE IMPROVING, NOW TRACE. BRUISES TO ABDOMEN IMPROVING. PT UPDATED ON PLAN OF CARE. NO ADDITIONAL REQUESTS OR COMPLAINTS. CALL LIGHT WITHIN REACH.
--- NOTE | 2022-11-14 08:56 | NUR ---
INTO SEE PATIENT, PCP SELECTION DISCUSSED. PATIENT WOULD LIKE TO SEE PROVIDER AT [facility]. ADVISED I WILL CONTACT THE OFFICE FOR NEW PATIENT APPOINTMENT. WILL PLAN FOR REPEAT O2 QUALIFIER PRIOR TO DISCHARGE. NO FURTHER NEEDS FROM PATIENT AT THIS TIME.
--- NOTE | 2022-11-14 10:10 | NUR ---
RX FAXED TO [facility]
[2022-11-14] MEDS ORDERED: VENTOLIN HFA18 GM INH (10:17)
[2022-11-14] MEDS ORDERED: CRESTOR20 MG PO (10:19)
[2022-11-14] MEDS ORDERED: JANTOVEN2.5 MG PO (10:19)
[2022-11-14] MEDS ORDERED: METOPROLOL SUCC50 MG PO (10:20)
[2022-11-14] MEDS ORDERED: NORVASC5 MG PO (10:20)
[2022-11-14] MEDS ORDERED: LASIX40 MG PO (10:20)
[2022-11-14] MEDS ORDERED: ZESTRIL40 MG PO (10:20)
[2022-11-14] MEDS ORDERED: NOVOLOG FL100 UNIT/1 SUB-Q (10:22)
[2022-11-14] MEDS ORDERED: INSULIN GL100 UNIT/2 SUB-Q (10:23)
--- NOTE | 2022-11-14 10:23 | NUR ---
PT READY FOR DISCHARGE. PTS FRIEND AT BEDSIDE AND IS ABLE TO TAKE PT HOME. PT DRESSES SELF, NO ASSISTANCE NEEDED. PT CONTINUES TO TOLEARTE ROOM AIR WIHT OXYGEN SATURATIONS 89-93%. HEART RATE WELL CONTROLLED WITH RATE IN THE 80-90'S. IV DC'D PER PROTOCOL, GAUZE AND COBAN APPLIED. DISCHARGE INSTRUCTIONS REVIEWED WITH PT. PT VERBALZIES UNDERSTANDING OF INSTRUCTIONS, MEDICAITONS, AND FOLLOW UP APPOINTMENT. PT STATES HIS QUESITONS HAVE BEEN ANSWERED. PHARMACIST TO BEDSIDE TO REVIEW MEDICAITONS WITH PT. PT VERBALIZES UNDERSTANDING AND STATES HIS QUESTIONS HAVE BEEN ANSWERED. PT TRANSFERES SELF TO WHEELCHAIR. NO ADDTIONAL REQUESTS OR CONCERNS.
--- NOTE | 2022-11-14 10:40 | NUR ---
Received a call [facility] She has scheduled pt for Nov 23. Asked if pt could be seen sooner as he needs to see [facility] and this needs to be ordered through the PCP. She states she will discuss with Dr. Harrison. Returned phone call from Bulmaro pts appt has been changed 11/15/22 at 4pm.
== END 2022-11-14 10:38 | disposition home or self-care (01) | DRG 193 ==
LOC: ED 09:27 → MS 14:29 → CCU 14:29 → MS 11-11 13:14
PROVIDERS: ADMIT Family Medicine; ATTEND Internal Medicine
DX: J13 Pneumonia due to Streptococcus pneumoniae (principal); J96.01 Acute respiratory failure with hypoxia; J44.1 Chronic obstructive pulmonary disease with (acute) exacerbation; J44.0 Chronic obstructive pulmonary disease with (acute) lower respiratory infection; Z20.822 Contact with and (suspected) exposure to COVID-19; E11.65 Type 2 diabetes mellitus with hyperglycemia; I50.9 Heart failure, unspecified; R79.1 Abnormal coagulation profile; F17.210 Nicotine dependence, cigarettes, uncomplicated; I48.91 Unspecified atrial fibrillation; I25.2 Old myocardial infarction; Z79.52 Long term (current) use of systemic steroids; Z79.84 Long term (current) use of oral hypoglycemic drugs; Z79.899 Other long term (current) drug therapy
CPT/HCPCS: 36415; 71045; 71260; 80048; 80053; 83036; 83735; 83880; 84100; 84484; 85025; 85610; 87040; 87502; 93005; 93010; 94640; 94668; 94760; 94761; 94799; 99406; A9270; C9803; J0456; J0696; J1650; J1815; J7060; J7512; Q9967; U0003

== ENCOUNTER 2023-09-11 14:47 | Emergency (ER) | payer OTHER ==
[~2023-09-11] VITALS: Ht 185.4 cm; Wt 126.5 kg
[~2023-09-11 14:47] MED LIST changes: +INSULIN GL100 UNIT/2 SUB-Q; +JARDIANCE25 MG PO; +METFORMIN HCL1000 MG PO; +METOPROLOL SUCC25 MG PO; +METOPROLOL SUCC50 MG PO; +NOVOLOG FL100 UNIT/1 SUB-Q; +POTASSIUM CHLO20 ME2 PO; +SEMGLEE (Y100 UNIT/2 SUB-Q; +SPIRIVA RESPIMAT4 GM INH; +TOPROL XL50 MG PO; +WARFARIN SODIU2.5 MG PO
[2023-09-11 15:00] LABS: BASOPHILS 1.5 % (0-2); EOSINOPHILS 2.4 % (0-6); HEMATOCRIT 57.3 % (35.0-50.0); HEMOGLOBIN 19.8 g/dL (12.0-18.0); LYMPHOCYTES 22.4 % (24-44); MCH 31.2 (27-36); MCHC 34.5 g/dl (30-36); MCV 90.4 fl (81-99); MONOCYTES 9.4 % (0-12); NEUTROPHILS 64.3 % (39-80); PLATELET COUNT 177 K/uL (140-440); RBC 6.34 M/ul (4.3-5.7); RDW 14.1 (10.5-15.0)
[2023-09-11 15:11] LABS: INR 1.98 (0.80-1.30); PROTIME 21.6 Sec (11.2-14.2)
[2023-09-11 15:19] LABS: ALBUMIN 3.7 g/dL (3.4-5.0); ALBUMIN/GLOBULIN RATIO 1.09 (1.1-2.4); BILIRUBIN, TOTAL 0.9 ng/dL (0.2-1.0); BUN/CREATININE RATIO 13.95 (6.0-28.6); CALCIUM 9.2 mg/dL (8.5-10.1); CREATININE, SERUM 0.86 mg/dL (0.70-1.30); MAGNESIUM 1.9 mg/dL (1.8-2.4); PROTEIN, TOTAL 7.1 g/dL (6.4-8.2)
[2023-09-11 17:12] VITALS: BP 145/91
--- NOTE | 2023-09-12 06:55 | EKG ---
[facility] [address] [facility] [place] [address] Signed Atrial fibrillation with rapid ventricular response with premature ventricular or aberrantly conducted complexes Left axis deviation Minimal voltage criteria for LVH, may be normal variant ( Mat product ) Inferior infarct , age undetermined Anterolateral infarct (cited on or before 07-NOV-2022) Abnormal ECG When compared with ECG of 09-NOV-2022 09:38, QRS duration has increased Questionable change in initial forces of Lateral leads Confirmed by ABEL DONAHUE MD ([id number]) on 09/12/2023 6:55:08 AM Electronically Signed By: ABEL DONAHUE 09/12/23 0655 PATIENT NAME: HIMANSHU MINOR Electrocardiogram DATE OF : 58 PHYSICIAN: ABEL DONAHUE REPORT #: [id number] REPORT IS CONFIDENTIAL AND NOT TO BE RELEASED WITHOUT AUTHORIZATION
== END 2023-09-11 17:12 | disposition home or self-care (01) ==
LOC: ED 14:47
PROVIDERS: Emergency Medicine
DX: I48.91 Unspecified atrial fibrillation (principal); I10 Essential (primary) hypertension; I25.2 Old myocardial infarction; J44.9 Chronic obstructive pulmonary disease, unspecified; E11.9 Type 2 diabetes mellitus without complications; Z79.01 Long term (current) use of anticoagulants; Z79.899 Other long term (current) drug therapy; Z79.4 Long term (current) use of insulin
CPT/HCPCS: 36415; 71045; 80053; 83735; 84484; 85025; 85610; 93005; 93010

== ENCOUNTER 2024-03-14 11:44 | Observation (INO) | payer MEDICARE, OTHER ==
[~2024-03-14] VITALS: Ht 185.4 cm; Wt 137.3 kg
[2024-03-14] MEDS ORDERED: ALBUTEROL/IPRATROPIUM 3 ML NEB INH PRN (12:15)
[2024-03-14] MEDS ORDERED: METOPROLOL SUCCINATE 50 MG TABCR PO ONE (12:15)
[2024-03-14] MEDS ORDERED: FUROSEMIDE 100 MG/10 ML VIAL IV ONE (12:15)
[2024-03-14 12:17] LABS: EOSINOPHILS 0.8 % (0-6); HEMATOCRIT 54.4 % (35.0-50.0); HEMOGLOBIN 17.8 g/dL (12.0-18.0); LYMPHOCYTES 17.8 % (24-44); MCH 30.2 (27-36); MCHC 32.6 g/dl (30-36); MCV 92.4 fl (81-99); MONOCYTES 10.6 % (0-12); NEUTROPHILS 69.8 % (39-80); PLATELET COUNT 147 K/uL (140-440); RBC 5.89 M/ul (4.3-5.7); RDW 14.6 (10.5-15.0)
[2024-03-14 12:28] LABS: INR 3.07 (0.80-1.30); PROTIME 30.7 Sec (11.2-14.2)
[2024-03-14 12:33] LABS: ALBUMIN/GLOBULIN RATIO 0.88 (1.1-2.4); ANION GAP 5.5 (7-21); BILIRUBIN, TOTAL 0.8 ng/dL (0.2-1.0); BUN/CREATININE RATIO 10.96 (6.0-28.6); CALCIUM 9.2 mg/dL (8.5-10.1); CREATININE, SERUM 1.55 mg/dL (0.70-1.30); MAGNESIUM 1.9 mg/dL (1.8-2.4); POTASSIUM 4.5 mmol/L (3.5-5.1); PROTEIN, TOTAL 6.4 g/dL (6.4-8.2)
[2024-03-14] MEDS ORDERED: FUROSEMIDE40 MG PO (15:55)
[2024-03-14] MEDS ORDERED: NOVOLOG FL100 UNIT/1 SUB-Q (15:59)
[2024-03-14] MEDS ORDERED: WARFARIN PER PHARMACY PROTOCOL PO SCH (16:00)
[2024-03-14 16:01] VITALS: BP 119/75
[2024-03-14] MEDS ORDERED: IBLOOD GLUCOSE TEST STRIP 1 EA TEST XX PRN (16:15)
[2024-03-14] MEDS ORDERED: GLUCAGON,HUMAN RECOMBINANT 1 MG/ML VIAL SUB-Q PRN (16:15)
[2024-03-14] MEDS ORDERED: ACETAMINOPHEN 325 MG TAB PO PRN (16:15)
[2024-03-14] MEDS ORDERED: DEXTROSE 5% 1,000 ML IV PRN (16:15)
[2024-03-14] MEDS ORDERED: DEXTROSE 50% 50 ML SYR IV PRN ×2 (16:15)
[2024-03-14] MEDS ORDERED: INSULIN LISPRO 100 UNIT/ML ML SUB-Q SCH (17:00)
[2024-03-14] MEDS ORDERED: IBLOOD GLUCOSE TEST STRIP 1 EA TEST VI SCH (17:00)
[2024-03-14 18:01] VITALS: BP 113/63
[2024-03-14] MEDS ORDERED: LISINOPRIL40 MG PO (18:11)
[2024-03-14] MEDS ORDERED: ROSUVASTATIN CA20 MG PO (18:12)
--- NOTE | 2024-03-14 18:15 | NUR ---
MED REC COMPLETE
[2024-03-14] MEDS ORDERED: WARFARIN SOD 2.5 MG TAB PO SCH (18:30)
--- NOTE | 2024-03-14 19:15 | NUR ---
SHIFT REPORT RECEIVED FROM RAZIANDJAIDA MOONEY. pt RESTING QUIETLY ON 2LNC, RR EVEN AND UNLABORED. NO DISTRESS NOTED. GENERALIZED ABD EDEMA NOTED, FIRM TO THE TOUCH, NON TENDER. NO NEEDS OR CONCERNS VERBALIZED, CALL LIGHT IN REACH.
[2024-03-14] MEDS ORDERED: lisinopriL 20 MG TAB PO SCH (21:00)
[2024-03-14] MEDS ORDERED: AMLODIPINE BESYLATE 5 MG TAB PO SCH (21:00)
[2024-03-14 21:13] VITALS: BP 134/84
--- NOTE | 2024-03-14 21:24 | NUR ---
CHEMISTRY PROFESSOR ENTERED ROOM AND TOOK BLOOD SUGAR AND OBTAINED VITALS. I AND O DOCUMENTED AND URINAL EMTPTIED. ICE WATER REFILLED. PT STATES NO FURTHER NEEDS AT THIS TIME. CALL LIGHT PLACED WITHIN REACH.
--- NOTE | 2024-03-14 21:37 | NUR ---
ASSESSMENT COMPLETE, SCHEDULED CARDIAC MED GIVEN ALONG WITH INSULIN SS. LEO COX SECOND VERIFIED INSULIN DOSE. GENERALIZED ABD EDEMA REMAINS NOTED WITH SOME PITTING EDEMA TO DISTAL PORTION OF ABD, NO CHANGE COMPARED TO START OF SHIFT, pt REPORTS THIS IS SIMILAR TO WHEN HE HAS CHF EXACERBATIONS IN THE PAST, pt QUOTES, "I GET LIKE A ANDI LAZARUS", pt THEN LAUGHS. NO DISTRESS NOTED, pt DENIES SOB AT THIS TIME. REMAINS ON 2LNC. LUNGS SOUNDS DIM WITH SLIGHT EXP WHEEZES IN UPPER LOBES. CMS INTACT, BLE REMAINS HELENA IN COLOR. 2-3+ EDEMA REMAINS NOTED BILATERALLY FROM HIPS TO ANKLES, ANKLE AREA AND BELOW HAVE +1 EDEMA, BILATERAL PEDAL PULSES WEAK BUT NOTED WITH MANUAL PALPATION. NO ADDITIONAL NEEDS OR CONCERNS VERBALIZED, CALL LIGHT IN REACH.
--- NOTE | 2024-03-14 22:00 | NUR ---
CLARIFIED 2.5MG PO WARFARIN DOSE WITH LEONIE VIA TELEPHARMACY. pt STATES HE DID NOT TAKE HIS WARFARIN TODAY. DISCUSSED TODAY'S PT/INR RESULTS WITH HIM WELL. PHARMACY TO DOSE WARFARIN ORDER ALREADY IN PLACE. PER LEONIE, GIVE ORDERED 2.5MG PO WARFARIN NOW. ALSO DISCUSSED WITH COMPUTATIONAL LINGUISTBROOKE BAILEY AND CARPET WEAVER, CARPET WEAVER ISABELLA CALLED BOBBIN PRESSER PHARMACIST ESTEBAN AND DISCUSSED INR RESULTS. PER ESTEBAN, GIVE ORDERED 2.5MG DOSE.
--- NOTE | 2024-03-14 22:44 | EKG ---
[facility] [address] [facility] [place] [address] Signed Sinus tachycardia with 1st degree AV block with premature supraventricular complexes and with occasional premature ventricular complexes Left anterior fascicular block Anterolateral infarct (cited on or before 07-NOV-2022) Abnormal ECG When compared with ECG of 11-SEP-2023 14:51, Sinus rhythm has replaced Atrial fibrillation Left anterior fascicular block is now present ST elevation now present in Lateral leads Confirmed by ABEL DONAHUE MD ([id number]) on 03/14/2024 10:45:18 PM Electronically Signed By: ABEL DONAHUE 03/14/24 2244 PATIENT NAME: HIMANSHU MINOR Electrocardiogram DATE OF : 58 PHYSICIAN: ABEL DONAHUE REPORT #: [id number] REPORT IS CONFIDENTIAL AND NOT TO BE RELEASED WITHOUT AUTHORIZATION
--- NOTE | 2024-03-14 23:20 | NUR ---
pt RESTING IN BED, ON 2LNC. NO DISTRESS NOTED, RR EVEN AND UNLABORED. CALL LIGHT IN REACH.
[2024-03-15] VITALS (8 sets, daily range): BP systolic 98–140; BP diastolic 54–95
--- NOTE | 2024-03-15 00:43 | NUR ---
CALL LIGHT ANSWERED. URINAL EMPTIED. PATIENT REQUESTING FRESH WATER AND DIET ABDIRAHMAN. WATER AND DIET ABDIRAHMAN GIVEN. NO FURTHER NEEDS CALL LIGHT WITHIN REACH.
--- NOTE | 2024-03-15 00:46 | NUR ---
ROUNDED ON pt, pt SITTING UP IN BED DRINKING HIS DIET SODA. NO NEEDS OR CONCERNS VERBALIZED. CALL LIGHT IN REACH AND TELE REMAINS IN PLACE.
--- NOTE | 2024-03-15 01:06 | NUR ---
FLANGING OPERATOR ENTERED ROOM AND OBTAINED VITALS. I AND O DOCUMENTED. PT STATES NO FURTHER NEEDS AT THIS TIME. CALL LIGHT WITHIN REACH.
--- NOTE | 2024-03-15 04:18 | NUR ---
ROUNDED ON pt, pt FOUND TO HAVE 2LNC REMOVED FROM FACE. pt AWOKE TO VOICE, STARTLED BUT ORIENTED. SPO2 85-86% ON RA. 2LNC BACK IN PLACE AND SPO2 QUICKLY MAT TO ABOVE 90%. pt NOW SITTING ON EDGE OF BED, NO ADDITIONAL NEEDS. pt DENIES SOB WHEN ASKED, LIGHT SCATTERED EXP WHEEZES NOTED WITH AUSCULTATION. NO ADDITIONAL NEEDS OR CONCERNS VERBALIZED. CALL LIGHT IN REACH.
--- NOTE | 2024-03-15 05:18 | NUR ---
HAND MODEL ENTERED ROOM AND OBTAINED VITALS. I AND O DOCUMENTED. HAND MODEL REFILLED PT ICE WATER PT REQUESTED. PT STATES NO FURTHER NEEDS AT THIS TIME. CALL LIGTH WITHIN REACH.
--- NOTE | 2024-03-15 05:30 | NUR ---
pt SLEPT WELL DURING THE NIGHT, VSS. 2LNC IN PLACE, NOT CHRONIC. VSS. IV SALINE LOCKED, WNL. pt UP SBA, SOB WITH EXERTION. EXP WHEEZES NOTED AT TIMES, NO DISTRESS. pt SBA WITH AMBULATION, CALLS APPROPRIATELY. TELE IN PLACE, HX AFIB. GENERALIZED ABD EDEMA, PITTING-IMPROVED PER pt. NO NAUSEA REPORTED, BOWEL TONES ACTIVE. pt TOLERATING 60G ADA DIET, SCHEDULED BS CHECKS.
[2024-03-15 06:10] LABS: BASOPHILS 1.1 % (0-2); EOSINOPHILS 0.8 % (0-6); HEMATOCRIT 52.5 % (35.0-50.0); HEMOGLOBIN 17.1 g/dL (12.0-18.0); LYMPHOCYTES 16.5 % (24-44); MCH 29.7 (27-36); MCHC 32.7 g/dl (30-36); MCV 90.9 fl (81-99); MONOCYTES 10.7 % (0-12); NEUTROPHILS 70.9 % (39-80); PLATELET COUNT 88 K/uL (140-440); RBC 5.77 M/ul (4.3-5.7); RDW 14.3 (10.5-15.0)
[2024-03-15 06:22] LABS: ANION GAP 7.6 (7-21); BUN/CREATININE RATIO 17.24 (6.0-28.6); CALCIUM 8.8 mg/dL (8.5-10.1); CREATININE, SERUM 0.87 mg/dL (0.70-1.30); INR 2.3 (0.80-1.30); POTASSIUM 4.6 mmol/L (3.5-5.1); PROTIME 24.3 Sec (11.2-14.2)
--- NOTE | 2024-03-15 06:39 | NUR ---
clarified with dr islas who's at rn station. confirmed with md he is already aware of abd edema/abd firmness. pt denies distress and nausea, bt remain active in all quadrants. no new orders received.
--- NOTE | 2024-03-15 07:05 | NUR ---
Pt report received from BROOKE Glass. Pt is asleep, supine in bed, mouth agape, breathing is regular, even, and non-labored, soft snoring occassionally. Call light in reach.
[2024-03-15] MEDS ORDERED: METOPROLOL SUCCINATE 50 MG TABCR PO SCH (09:00)
[2024-03-15] MEDS ORDERED: lisinopriL 20 MG TAB PO SCH (09:00)
[2024-03-15] MEDS ORDERED: FUROSEMIDE 40 MG/4 ML VIAL IV SCH (09:00)
[2024-03-15] MEDS ORDERED: EMPAGLIFLOZIN 25 MG TAB PO SCH (09:00)
[2024-03-15] MEDS ORDERED: PANTOPRAZOLE SODIUM 40 MG TABEC PO SCH (09:00)
[2024-03-15] MEDS ORDERED: WARFARIN SOD 2.5 MG TAB PO SCH (09:00)
[2024-03-15] MEDS ORDERED: FUROSEMIDE 100 MG/10 ML VIAL IV SCH (09:00)
--- NOTE | 2024-03-15 09:45 | NUR ---
SPOKE TO PATIENT ABOUT THE DISCHARGE PLAN. PATIENT LIVES IN A RV WITH HIS DOG. PATIENT DOES NOT USE DME. PATIENT IS ABLE TO DRIVE. PATIENT PLANS TO GO HOME TO HIS RV WHEN MEDICALLY STABLE. PATIENT CAN AFFORD HIS FOOD AND RENT. PATIENT HAS 4 STEPS AND A GRAB BAR TO GET IN HIS RV. PATIENT DOES NOT HAVE ANY DC'd. NEEDS AT THIS TIME.
--- NOTE | 2024-03-15 11:11 | NUR ---
VISITED DURING SPIRITUAL CARE ROUNDS. PT EXHIBITED STRONG RELATIONAL RESOURCES - LOOKING FORWARD TO VISIT FROM BROTHER. DENIED ADDITIONAL NEEDS. PROVIDED SUPPORTIVE PRESENCE, HOSPITALITY, PRAYER. PT EXPRESSED GRATITUDE.
[2024-03-15] MEDS ORDERED: PHARMACY RENAL DOSE ADJUSTMENT 1 DOSE MISC PO SCH (12:00)
[2024-03-15] MEDS ORDERED: WARFARIN SOD 5 MG TAB PO SCH (16:00)
--- NOTE | 2024-03-15 18:12 | NUR ---
Pt has been up to chair for the majority of this shift. He states that he is feeling much better now since he's been in and states that he has been voiding a lot. Pt has had no complaints this shift. Uses call light appropriately. Pt has eaten 100% of his meals and received 3 units insulin for breakfast, 5 units for lunch, and 3 units for dinner.
--- NOTE | 2024-03-15 19:33 | NUR ---
REPORT RECEIVED FROM DAY RN. PATIENT RESTING IN BED OXYGEN ON VIA NC AT 2L/MIN. NO REPORTS OF SOB OR PAIN AT THIS TIME. CALL LIGHT WITHIN REACH.
--- NOTE | 2024-03-15 20:10 | NUR ---
PATIENT RESTING IN BED. WHEEZING IN BILATERAL UPPER AND LOWER LOBES. BLOOD SUGAR CHECK COMPLETED. HS MEDICATIONS GIVEN. NO URINAL EMPTIED, VSS. NO C/O PAIN AT THIS TIME. EDEMA NOTED TO LOWER EXTERMITIES. MILD TENDERNESS NOTED TO BILATERAL ANKLES. DENIES ANY FURTHER NEEDS AT THIS TIME. CALL LIGHT WITHIN REACH.
--- NOTE | 2024-03-15 20:40 | NUR ---
tele lead off, back in place. pt awake and resting on edge of bed, deneis additional needs or concerns. call light in reach.
--- NOTE | 2024-03-15 20:48 | NUR ---
PATIENT REPORTS FEELING TIGHT IN HIS CHEST. WHEEZING LUNG SOUNDS THROUGHOUT.NEEDING INCREASED SUPPLEMENTAL OXYGEN TO MAINTAIN OXYGEN SATURATION ABOVE 90%. DISCUSSED WITH RT. MD NOTIFIED. TELEPHONE ORDERS RECEIVED FOR DUO NEBS Q 6 HRS PRN. ORDERS VERIFIED VIA VERBAL READ BACK.
[2024-03-15] MEDS ORDERED: ALBUTEROL/IPRATROPIUM 3 ML NEB INH PRN (21:00)
--- NOTE | 2024-03-15 21:29 | NUR ---
green tele lead off at this time, back in place. no further needs, call light in reach.
--- NOTE | 2024-03-15 22:30 | NUR ---
PATIENT RESTING IN BED. REPORTS FEELING BETTER AFTER BREATHING TX. LUNGS DIM THROUGHOUT WHEEZING NOTED IN UPPER BILATERAL LOBES. OXYGEN IN PLACE VIA NC AT 2L/MIN. NO NEEDS AT THIS TIME. CALL LIGHT WITHIN REACH.
[2024-03-16] VITALS (7 sets, daily range): BP systolic 114–153; BP diastolic 68–84
--- NOTE | 2024-03-16 00:30 | NUR ---
TELE LEADS OFF, REAPPILED LEADS. PATIENT SITTING ON EDGE OF BED. REQUESTING WATER AND SNACK. FRESH WATER AND SNACK GIVEN. NO NOTED SOB. NO FURTHER NEEDS AT THIS TIME. CALL LIGHT WITHIN REACH.
--- NOTE | 2024-03-16 02:00 | NUR ---
PATIENT AWAKE SITTING ON THE EDGE OF BED. LUNG SOUNDS DIM THROUGHOUT EXPIRATORY WHEEZING NOTED IN BILATERAL LOBES, UPPER BILATERAL LOBES CTA. DENIES ANY SOB AT THIS TIME. RN PROVIDED EDUCATION TO PATIENT REGUARDING MONITORING FLUID INTAKE INCLUDING INCREASED FLUID INTAKE PUTS A LARGER WORKLOAD ON THE HEART CAUSING EDEMA. NO FURHER NEEDS AT THIS TIME. CALL LIGHT WITHIN REACH.
--- NOTE | 2024-03-16 02:04 | NUR ---
ELECTRICAL TRANSMISSION ENGINEER ENTERED ROOM AND OBTAINED VITALS AND I AND O DOCUMENTED. PT WENT TO BATHROOM AND VOIDED. 1 UNMEASURED VOID DOCUMENTED. RN IN ROOM.
--- NOTE | 2024-03-16 04:56 | NUR ---
HOSPITALITY INTERNSHIP ENTERED ROOM AND PLACED TELE LEAD BACK ON AND OBTAINED VITALS. I AND O DOCUMENTED. HOSPITALITY INTERNSHIP REFILLED ICE WATER REQUESTED. PT STATES NO FURTHER NEEDS AT THIS TIME. CALL LIGHT PLACED WITHIN REACH.
--- NOTE | 2024-03-16 05:09 | NUR ---
PATIENT SITTING AT SIDE OF BED. NO C/O SOB AT THIS TIME. OXYGEN ON VIA NC AT 2L/MIN. DAILY WEIGHT OBTAINED SEE CHART. VSS, NO FURTHER NEEDS AT THIS TIME. CALL LIGHT WITHIN REACH.
[2024-03-16 05:59] LABS: INR 2.7 (0.80-1.30); PROTIME 27.7 Sec (11.2-14.2)
--- NOTE | 2024-03-16 07:18 | NUR ---
RECEIVED REPORT FROM BROOKE NOVA. ASSUMING CARE OF PT. PT UP TO CHAIR AWAKE, STATES NO NEEDS AT THIS TIME. CALL LIGHT WITHIN REACH.
--- NOTE | 2024-03-16 08:50 | NUR ---
PT AWAKE IN CHAIR, EATING BREAKFAST. PT PAIN OR SOB AT THIS TIME. O2 WEANED FROM 2L TO 1L, O2 SATURATION UNCHANGED FROM WHEN ON 2L, REMAINS >93%. LUNG SOUNDS DIM IN ALL LOBES. EDEMA IN BLE 2+ PITTING, FEET 1+ PITTING, TRACE AMOUNT IN HIPS AND SCROTAL AREA. ABDOMEN FIRM WITH GENERALIZED EDEMA, PT DENIES PAIN IN ABDOMEN. PT STATES HE FEELS SWELLING HAS REDUCED SIGNIFICANTLY. PT STATES NO NEEDS AT THIS TIME. EDUCATION ON FLUID INTAKE IN RELATION TO EDEMA. PT VERBALIZES UNDERSTANDING. CALL LIGHT WITHIN REACH.
--- NOTE | 2024-03-16 08:57 | NUR ---
FACILITY MAINTENANCE MANAGER ENTERED PT ROOM TO RECORD BG AND DO MORNING ROUNDS. PT REQUESTED SOME COFFEE. NO FURTHER COMPLAINTS CALL LIGHT WIHTIN REACH
--- NOTE | 2024-03-16 09:58 | NUR ---
ASSOCIATE PROFESSOR OF PSYCHOLOGY ENTERED ROOM TO RECORD PT VS AND I&OS. PT USIRNAL WAS EMPTIED AND THERE WAS NO OUTPUT WRITEEN ON PT BOARD. PT INFORMED ASSOCIATE PROFESSOR OF PSYCHOLOGY THAT HE HAD BEEN USING THE TOILET AND HAD VOIDED FOUR OR FIVE TIMES. ASSOCIATE PROFESSOR OF PSYCHOLOGY EDUCATED PT ON THE IMPORTANCE OF USING THE URINAL SO THAT STAFF CAN MEASURE HIS OUTPUT. PT STATED HE UNDERSTOOD. ASSOCIATE PROFESSOR OF PSYCHOLOGY GAVE PT A NEW CUP OF COFFEE. NO FURTHER COMPLAINTS AND CALL LIGHT IS WITHIN REACH
--- NOTE | 2024-03-16 10:37 | NUR ---
PT WEANED FROM 1L O2 TO RA, O2 SATURATION UNCHANGED, REMAINS >93% ON RA. DR. DONAHUE TO BEDSIDE. PT STATES NO NEEDS AT THIS TIME, CALL LIGHT WITHIN REACH.
--- NOTE | 2024-03-16 10:53 | NUR ---
TELE DC'D D/T DC ORDER.
--- NOTE | 2024-03-16 11:25 | NUR ---
IV DC'D WNL. PT DRESSES SELF IN OWN CLOTHES. VSS. PT STATES NO NEEDS AT THIS TIME, CALL LIGHT WITHIN REACH.
--- NOTE | 2024-03-16 11:55 | NUR ---
PT AMBULATES TO WHEELCHAIR, WHEELED TO FRONT OF BUILDING BY NURSING PERSONEL, LEAVING WITH ALL PERSONAL BELONGINGS.
== END 2024-03-16 11:55 | disposition home or self-care (01) ==
LOC: ED 11:44 → MS 11:46
PROVIDERS: Emergency Medicine; ADMIT Internal Medicine; ATTEND Internal Medicine
DX: I11.0 Hypertensive heart disease with heart failure (principal); I50.43 Acute on chronic combined systolic (congestive) and diastolic (congestive) heart failure; E11.9 Type 2 diabetes mellitus without complications; I48.91 Unspecified atrial fibrillation; R60.1 Generalized edema; I25.2 Old myocardial infarction; E66.9 Obesity, unspecified; Z68.41 Body mass index [BMI] 40.0-44.9, adult; Z79.01 Long term (current) use of anticoagulants; Z79.899 Other long term (current) drug therapy
CPT/HCPCS: 36415; 71045; 80048; 80053; 83735; 83880; 84484; 85025; 85610; 93005; 93010; 93306; 94640; 94760; 94761; 96374; 96376; 99285-25; A9270; G0378; J1815; J1940

== ENCOUNTER 2024-05-06 14:46 | Inpatient (IN) | payer MEDICARE, OTHER ==
[~2024-05-06] VITALS: Ht 185.4 cm; Wt 139.7 kg
[2024-05-06] VITALS (11 sets, daily range): BP systolic 98–133; BP diastolic 53–118
[~2024-05-06 14:46] MED LIST changes: +FUROSEMIDE40 MG PO; +LISINOPRIL40 MG PO; +ROSUVASTATIN CA20 MG PO
[2024-05-06 15:21] LABS: BASOPHILS 0.8 % (0-2); EOSINOPHILS 0.3 % (0-6); HEMATOCRIT 54.7 % (35.0-50.0); HEMOGLOBIN 17.6 g/dL (12.0-18.0); LYMPHOCYTES 14.9 % (24-44); MCH 29.1 (27-36); MCHC 32.1 g/dl (30-36); MCV 90.6 fl (81-99); MONOCYTES 12.3 % (0-12); NEUTROPHILS 71.7 % (39-80); PLATELET COUNT 165 K/uL (140-440); RBC 6.03 M/ul (4.3-5.7)
[2024-05-06] MEDS ORDERED: ALBUTEROL/IPRATROPIUM 3 ML NEB INH ONE (15:30)
[2024-05-06] MEDS ORDERED: FUROSEMIDE 40 MG/4 ML VIAL IV ONE (15:30)
[2024-05-06] MEDS ORDERED: DEXAMETHASONE SOD PHOS 10 MG/ML VIAL IV ONE (15:30)
[2024-05-06 15:33] LABS: ALBUMIN 3.2 g/dL (3.4-5.0); ALBUMIN/GLOBULIN RATIO 0.91 (1.1-2.4); ANION GAP 8.6 (7-21); BILIRUBIN, TOTAL 1.2 ng/dL (0.2-1.0); BUN/CREATININE RATIO 17.88 (6.0-28.6); CALCIUM 8.8 mg/dL (8.5-10.1); CREATININE, SERUM 1.23 mg/dL (0.70-1.30); MAGNESIUM 2.1 mg/dL (1.8-2.4); POTASSIUM 3.6 mmol/L (3.5-5.1); PROTEIN, TOTAL 6.7 g/dL (6.4-8.2)
[2024-05-06 15:35] LABS: INR 1.79 (0.80-1.30); PROTIME 19.9 Sec (11.2-14.2)
[2024-05-06 15:40] LABS: PH, VENOUS 7.333 (7.31-7.41)
[2024-05-06] MEDS ORDERED: DILTIAZEM HCl/D5W 125 ML IV SCH (16:30)
[2024-05-06] MEDS ORDERED: LIDOCAINE 2% VISCOUS 6 ML SYR TOP ONE (16:30)
[2024-05-06 17:04] LABS: BILIRUBIN, URINE NEGATIVE (negative); BLOOD/HGB, URINE TRACE-I (Negative); KETONE, URINE NEGATIVE (Negative); LEUK ESTERASE, URINE NEGATIVE (negative); NITRITE, URINE NEGATIVE (negative); PH, URINE 5.5 (5-7)
[2024-05-06 17:10] LABS: BACTERIA, URINE NONE SEEN /hpf (negative); CASTS, URINE NONE SEEN \\lpf; COLLECTION TYPE, URINE CLEAN CATCH; CRYSTALS, URINE NONE SEEN (0-1+); EPITHELIAL CELLS, URINE SQUAMOUS 1+ /lpf (0-1+); REFLEX CULTURE, URINE No (No)
[2024-05-06] MEDS ORDERED: dilTIAZem HCL 25 MG/5 ML VIAL IV ONE (17:15)
[2024-05-06] MEDS ORDERED: AMLODIPINE BESYL5 MG PO (17:39)
[2024-05-06] MEDS ORDERED: METOPROLOL SUCCINATE 50 MG TABCR PO SCH (18:01)
[2024-05-06] MEDS ORDERED: WARFARIN SOD 5 MG TAB PO SCH (18:17)
--- NOTE | 2024-05-06 18:40 | NUR ---
64 YEAR OLD MALE PATIENT ADMITTED TO CCU FORM ER VIA STRETCHER WITH DX OF CHF, AFIB RVR. PATIENT WITH HX OF CHF, COPD,[place], HTN,DM. PATIENT WENT TO THE CLINIC TODAY AND HAD SAT OF 87 ON RA, ON ARRIVIAL TO ED, O2 SAT 84 ON RA. PATIENT HAS NOT TAKEN HIS LASIX FOR APPROX 5 DAYS HE RAN OUT OF IT. UPON ADMIOT TO CCU PATIENT IS ON BIPAP AT 20/10 FIO2-40,RR-18. WALKER CATH PATENT. CARDIZEM GTT AT 20 MG/HR. DECREASED TO 15 MG/HR. DENIES PAIN, NAUSEA.
--- NOTE | 2024-05-06 19:45 | NUR ---
REPORT RECEIVED AND CARE ASSUMED FROM BROOKE SPENCE. PT VSS VIA CONTINUOUS MONITOR.
--- NOTE | 2024-05-06 19:51 | NUR ---
DR BERNAL NOTIFIED PT HAS NO ORDERS ADDRESSING DM BLOOD GLUCOSE. ORDERS RECEIVED VIA TELEPHONE, WRITTEN DOWN AND READ BACK FOR VERIFICATION. ORDERS ENTERED INTO [employer].
[2024-05-06] MEDS ORDERED: DEXTROSE 50% 50 ML SYR IV PRN ×2 (20:00)
[2024-05-06] MEDS ORDERED: DEXTROSE 5% 1,000 ML IV PRN (20:00)
[2024-05-06] MEDS ORDERED: GLUCAGON,HUMAN RECOMBINANT 1 MG/ML VIAL SUB-Q PRN (20:00)
[2024-05-06] MEDS ORDERED: IBLOOD GLUCOSE TEST STRIP 1 EA TEST XX PRN (20:00)
--- NOTE | 2024-05-06 20:45 | NUR ---
SHIFT ASSESSMENT COMPLETE. SEE [employer] FOR DETAILS. PT RESTING IN BED USING PERSONAL CELL PHONE. PT REQUESTED AND PROVIDED SANDWICH TRAY. PT DENIES ADDITIONAL NEEDS. PT VERBALIZES UNDERSTANDING TO USE CALL LIGHT WITH NEEDS. BED IN LOW, LOCKED POSITION WITH BED ALARM ON FOR PT SAFETY. PERSONAL ITEMS IN REACH. DILTIAZEM GTT INFUSING PER EMAR INTO PATENT PIV. AARON PATENT AND DRAINING.
[2024-05-06] MEDS ORDERED: IBLOOD GLUCOSE TEST STRIP 1 EA TEST XX SCH (21:00)
[2024-05-06] MEDS ORDERED: INSULIN LISPRO 100 UNIT/ML ML SUB-Q SCH (21:00)
[2024-05-06] MEDS ORDERED: AMLODIPINE BESYLATE 5 MG TAB PO SCH (21:00)
[2024-05-06] MEDS ORDERED: methylPREDNISolone SOD SUCC 40 MG/ML VIAL IV SCH (22:00)
--- NOTE | 2024-05-06 22:06 | NUR ---
PT RESTING IN BED, BIPAP IN PLACE. PT DENIES NEEDS AT THIS TIME. CALL LIGHT IN REACH. PT SELF REPOSITIONING. BED IN LOW, LOCKED POSITION. VSS AND NAD NOTED VIA DIRECT OBS, CONTINUOUS MONITOR AND PT STATEMENT.
--- NOTE | 2024-05-06 23:20 | NUR ---
RT NOTIFIED OF PT O2 SAT 89-91%. FI02 ON BIPAP INCREASED TO 50%. PT NOW SAT 95%
[2024-05-07] VITALS (21 sets, daily range): BP systolic 94–129; BP diastolic 69–109
--- NOTE | 2024-05-07 00:19 | NUR ---
SHIFT ASSESSMENT COMPLETE. SEE [employer] FOR DETAILS. PT RESTING IN BED, EASILY AWAKENED TO TOUCH. PT SELF REPOSITIONING. PT DENIES NEEDS. BIPAP IN PLACE. PATENT PIV WITH DILTIAZEM GTT INFUSING PER EMAR. PT VERBALIZES UNDERSTANDING TO USE CALL LIGHT WITH NEEDS. BED IN LOW, LOCKED POSITION. WALKER PATENT AND DRAINING. VSS AND NAD NOTED VIA DIRECT OBS, CONTINUOUS MONITOR AND PT STATEMENT.
--- NOTE | 2024-05-07 01:54 | NUR ---
PT REQUEST AND PROVIDED DRINK OF WATER. PT BIPAP REMOVED BRIEFLY FOR WATER. PT SAT REMAINED >92%. PT SELF REPOSITIONED. PT DENIES ADDITIONAL NEEDS. PT PIV PATENT WITH DILTIAZEM GTT INFUSING PER EMAR. PT WALKER PATENT WITH ADEQUATE UO. URINE CLEAR, NICKI COLOR WITH SMALL RED CLOTS. PT BIPAP REPLACED ON PT. PT VSS AND NAD NOTED VIA PT STATEMENT, CONTINUOUS MONITOR AND DIRECT OBS.
--- NOTE | 2024-05-07 04:00 | NUR ---
SHIFT ASSESSMENT COMPLETE. SEE [facility] FOR DETAILS. NO CHANGES SINCE LAST ASSESSMENT. PT REMAINS ON BIPAP WITH PATENT PIV AND DILTIAZEM GTT INFUSING PER ORDERS. PT SELF REPOSITIONING. CALL LIGHT IN REACH. WALKER PATENT AND DRAINING. BED IN LOW, LOCKED POSITION WITH BED ALARM ON FOR PT SAFETY. VSS AND NAD NOTED VIA DIRECT OBS, PT STATEMENT AND CONTINUOUS MONITOR.
[2024-05-07 05:01] LABS: HEMOGLOBIN 17.1 g/dL (12.0-18.0); MCV 90.4 fl (81-99)
[2024-05-07 05:05] LABS: BASOPHILS 0.8 % (0-2); HEMATOCRIT 53.7 % (35.0-50.0); LYMPHOCYTES 6.7 % (24-44); MCH 28.8 (27-36); MCHC 31.8 g/dl (30-36); MONOCYTES 3.9 % (0-12); NEUTROPHILS 88.6 % (39-80); PLATELET COUNT 157 K/uL (140-440); RBC 5.94 M/ul (4.3-5.7); RDW 15.8 (10.5-15.0)
[2024-05-07 05:10] LABS: ANION GAP 3.8 (7-21); BUN/CREATININE RATIO 17.69 (6.0-28.6); CALCIUM 8.9 mg/dL (8.5-10.1); CREATININE, SERUM 1.3 mg/dL (0.70-1.30); POTASSIUM 3.8 mmol/L (3.5-5.1)
--- NOTE | 2024-05-07 06:03 | NUR ---
PT RESTING IN BED, DENIES NEEDS, DILT GTT INFUSING INTO PATENT PIV. WALKER PATENT AND DRAINING. BIPAP IN PLACE. CALL LIGHT IN REACH. BED IN LOW, LOCKED POSITION WITH BED ALARM ON FOR PT SAFETY. PT DENIES NEEDS AT THIS TIME. VSS AND NAD NOTED VIA DIRECT OBS, CONTINUOUS MONITOR AND PT STATEMENT.
--- NOTE | 2024-05-07 07:25 | NUR ---
REPORT GIVEN AND CARE ENDORSED TO DAYSHIFT RNs. PT VSS VIA CONTINUOUS MONITOR. DILT GTT INFUSING INTO PATENT PIV.
--- NOTE | 2024-05-07 07:30 | NUR ---
REPORT RECEICVED. PATIENT RESTING ON BIPAP.
--- NOTE | 2024-05-07 08:03 | NUR ---
UR CLINICAL REVIEW: [facility] CRITERIA [facility] INPT 05/06/24 @ 1801 ORDER MATCHED REG CLINICALS SENT FOR AUTH TO [facility] PENDING FURTHER ASSESSMENT 05/10/24
[2024-05-07] MEDS ORDERED: FUROSEMIDE 100 MG/10 ML VIAL IV SCH (09:00)
[2024-05-07] MEDS ORDERED: WARFARIN PER PHARMACY PROTOCOL PO SCH (09:19)
--- NOTE | 2024-05-07 10:00 | NUR ---
SLEEPING IN BED ON BIPAP. NO FURTHER CHANGES.
[2024-05-07] MEDS ORDERED: lisinopriL 20 MG TAB PO SCH (11:37)
[2024-05-07] MEDS ORDERED: EMPAGLIFLOZIN 25 MG TAB PO SCH (11:38)
[2024-05-07] MEDS ORDERED: AZITHROMYCIN 500 MG in DEXTROSE 5% 250 ML IV SCH (11:44)
[2024-05-07] MEDS ORDERED: INSULIN GLARGINE-YFGN 100 UNIT/ML ML SUB-Q SCH (12:00)
[2024-05-07] MEDS ORDERED: PHARMACY RENAL DOSE ADJUSTMENT 1 DOSE MISC PO SCH (12:00)
--- NOTE | 2024-05-07 12:00 | NUR ---
OOB TO CHAIR. DR. BERNAL AWARE OF ACCUCHECK 441. ORDERS RECEIVED TO GIVE LONG ACTING INSULIN AND 15 SHORT ACTING. THIS DONE. ASSESSMENT DONE, THEN READY TO EAT LUNCH. WHEN NOT ON BIPAP PATIENT IS ON O2 AT 4 L NC. DENIES PAIN
--- NOTE | 2024-05-07 13:41 | NUR ---
SPOKE TO PATIENT ABOUT THE DISCHARGE PLAN. PATIENT DOES NOT WANT SNF. PATIENT LIVES IN A RV IN [place]. PATIENT ALSO USES A [employer] MAILING ADDRESS. PATIENT IS A SMOKER AND HAS CHRONIC MEDCIAL ISSUES SUCH CHF AND COPD. PATIENT IS NOT COMPLIANT WITH HIS MEDICATION.PATIENT LIVES IN A RV WITH HIS DOG. PATIENT HAS A SISTER WHO CAN HELP IF NEEDED. PATIENT'S DEMOGRAPHICS ARE CORRECT.PATIENT HAS FOOD AND HOUSING.PATIENTIS A LONER AND HAS NO FRIENDS. PATIENT CAN DO HIS OWN ADLS AND DRIVES A CAR. PATIENT DOES NOT WANT HELP FROM THE DRY CLEANING TEACHER. PATIENT WILL ASK TO SPEAK TO DRY CLEANING TEACHER IF A ISSUE COMES UP.
--- NOTE | 2024-05-07 14:00 | NUR ---
REMAINS IN CHAIR. SLEEPING. REMAINS ON BIPAP. O2 SAT ON 24% FIOS 86. FIO2 INCREASED TO 30.
--- NOTE | 2024-05-07 16:30 | NUR ---
ASSESSMENT DONE. BACK TO BED. INCREASED SHORTNESS OF BREATH WITH WITH EXERTION. PATIENT STATES SHE FEELS LIKE HE IS BREATHING EASIER TODAY. STATES I STILL HAVE A LOT OF FLUID TO GET RID OF. ON RETURN TO BED, CATH GIVEN, SCROTUM REMAINS VERY SWOLLEN.
[2024-05-07] MEDS ORDERED: ATORVASTATIN 40 MG TAB PO SCH (17:00)
[2024-05-07] MEDS ORDERED: Insulin Regular, Human 100 UNIT/ML ML IV ONE (17:30)
--- NOTE | 2024-05-07 19:30 | NUR ---
REPORT RECEIVED AND CARE ASSUMED FROM BROOKE SPENCE. PT VSS VIA CONTINUOUS MONITOR.
--- NOTE | 2024-05-07 20:20 | NUR ---
SHIFT ASSESSMENT COMPLETE. SEE [facility] FOR DETAILS. PT RESTING IN BED WITH EYES OPEN WATCHING TELEVISION. PT DENIES NEEDS AT THIS TIME. PIV PATENT. WALKER CATHETER PATENT AND DRAINING. CALL LIGHT AND PERSONAL ITEMS IN REACH. PT VERBALIZES UNDERSTANDING TO USE CALL LIGHT WITH NEEDS. BED IN LOW, LOCKED POSITION. VSS AND NAD NOTED VIA DIRECT OBS, CONTINUOUS MONITOR AND PT STATEMENT.
--- NOTE | 2024-05-07 21:37 | NUR ---
PT REQUESTED AND ASSISTED WITH PLACING BIPAP ON FOR SLEEP. PT DENIES ADDITIONAL NEEDS. CALL LIGHT IN REACH. BED IN LOW, LOCKED POSITION. VSS AND NAD NOTED VIA DIRECT OBS, CONTINUOUS MONITOR AND PT STATEMENT.
[2024-05-08] VITALS (15 sets, daily range): BP systolic 94–133; BP diastolic 51–87
--- NOTE | 2024-05-08 00:28 | NUR ---
SHIFT ASSESSMENT COMPLETE. SEE [employer] FOR DETAILS. PT RESTING IN BED EASILY AWAKENED TO VOICE. PT DENIES NEEDS AT THIS TIME. BIPAP IN PLACE. CALL LIGHT IN REACH. BED IN LOW LOCKED POSITION. PT DEMONSTRATES APPROPRIATE USE OF CALL LIGHT WITH NEEDS. VSS AND NAD NOTED VIA DIRECT OBS, PT STATEMENT AND CONTINUOUS MONITOR.
--- NOTE | 2024-05-08 00:34 | NUR ---
PT CALLED WITH CALL LIGHT ASKING FOR SNACK AND ANOTHER CUP OF ICE WATER. PT EDUCATED TO FLUID RESTRICTION ORDER. PT STATES UNDERSTANDING. SNACK PROVIDED PER REQUEST.
--- NOTE | 2024-05-08 02:03 | NUR ---
PT RESTING IN BED WATCHING TELEVISION. PT DENIES NEEDS. CALL LIGHT IN REACH. BED IN LOW, LOCKED POSITION. VSS AND NAD NOTED VIA DIRECT OBS, CONTINUOUS MONITOR AND PT STATEMENT. AARON PATENT AND DRAINING.
--- NOTE | 2024-05-08 04:13 | NUR ---
SHIFT ASSESSMENT COMPLETE. SEE [employer] FOR DETAILS. PT RESTING IN BED, EASILY AWAKENS TO VOICE. PT DENIES NEEDS AT THIS TIME. CALL LIGHT IN REACH, BED IN LOW, LOCKED POSITION. WALKER PATENT AND DRAINING. PT SELF REPOSITIONING. BIPAP IN PLACE. VSS AND NAD NOTED VIA DIRECT OBS, PT STATEMENT AND CONTINUOUS MONITOR.
--- NOTE | 2024-05-08 05:06 | NUR ---
PT O2 SAT 88-90% ON BIPAP SETTING OF 30%. SETTING INCREASED TO 40%, RT NOTIFIED. PT NOW SAT 95%. VSS
[2024-05-08 05:39] LABS: BASOPHILS 0.3 % (0-2); EOSINOPHILS 0.1 % (0-6); HEMATOCRIT 52.5 % (35.0-50.0); MCH 29.2 (27-36); MCHC 32.5 g/dl (30-36); MONOCYTES 2.7 % (0-12); NEUTROPHILS 92.9 % (39-80); PLATELET COUNT 161 K/uL (140-440); RBC 5.83 M/ul (4.3-5.7); RDW 15.5 (10.5-15.0)
[2024-05-08 05:46] LABS: ANION GAP 6.6 (7-21); BUN/CREATININE RATIO 34.51 (6.0-28.6); CALCIUM 9.3 mg/dL (8.5-10.1); CREATININE, SERUM 1.13 mg/dL (0.70-1.30); INR 3.16 (0.80-1.30); MAGNESIUM 2.3 mg/dL (1.8-2.4); POTASSIUM 4.6 mmol/L (3.5-5.1); PROTIME 31.4 Sec (11.2-14.2)
--- NOTE | 2024-05-08 07:20 | NUR ---
REPORT RECEIVED FROM BROOKE LERNER ALL QUESTIONS ANSWERED. PT LYING IN BED ON BIPAP. CALL LIGHT IN REACH.
--- NOTE | 2024-05-08 07:26 | NUR ---
REPORT GIVEN AND CARE ENDORSED TO ONCOMING SHIFT RNs. ALL QUESTIONS ANSWERED. VSS VIA CONTINUOUS MONITOR.
--- NOTE | 2024-05-08 08:49 | NUR ---
MORNING ASSESSMENT COMPLETE. PT SWITCHED FROM BIPAP TO NC AT 4L, O2 SAT 97%. PT UP FROM BED TO SCALE AND THEN RECLINER. TIGHT LUNG SOUNDS, DIM IN THE BASES. WALKER PUTTING OUT SLIGHTLY RED TINGED, YELLOW AND CLEAR URINE. CBG 271. MEDICATIONS ADMINISTERED, SEE EMAR. DISCUSSED FLUID RESTRICTION, PT VERBALIZED UNDERSTANDING. BREAKFAST AT BEDSIDE. PT DENIES FURTHER NEEDS AT THIS TIME. CALL LIGHT IN REACH.
[2024-05-08] MEDS ORDERED: INSULIN GLARGINE-YFGN 100 UNIT/ML ML SUB-Q SCH (09:00)
[2024-05-08] MEDS ORDERED: METOPROLOL SUCCINATE 50 MG TABCR PO SCH (09:00)
--- NOTE | 2024-05-08 10:38 | NUR ---
PT RESTING IN RECLINER, AWAKENS EASILY. DISCUSSION ON PLAN OF CARE AND MEDICATIONS. PT DENIES FURTHER NEEDS AT THIS TIME. CALL LIGHT IN REACH.
--- NOTE | 2024-05-08 11:33 | NUR ---
SPOKE TO PATIENT ABOUT THE POSSIBLE NEED FOR OXYGEN AT DISCHARGE. PATIENT STATES HE LIVES IN A RV AND IT WILL NOT FIT AND PATIENT STATES LAST ADMISSION THE PATIENT GOT BETTER AND DID NOT NEED THE OXYGEN. PATIENT WILL BE IN THE HOSPITAL 1-2 MORE DAYS. PATIENT REFUSES SNF.
--- NOTE | 2024-05-08 11:44 | NUR ---
PT AWAKE WATCHING TV IN RECLINER, O2 SAT 100% ON 4L, TITRATED DOWN TO 2L NC, O2 SAT 98% CALL LIGHT IN REACH.
[2024-05-08] MEDS ORDERED: dilTIAZem HCL 120 MG CAPCR PO SCH (12:54)
--- NOTE | 2024-05-08 12:58 | NUR ---
DR BERNAL IN ROOM ROUNDING ON PATIENT. VERBAL ORDER FOR 120MG CARDIZEM CONTROLLED RELEASE. NO FURTHER ORDERS AT THIS TIME. PT REMAINS ON 4LNC WITH O2 SAT 97%. PT DENIES FURTHER NEEDS AT THIS TIME. CALL LIGHT IN REACH.
--- NOTE | 2024-05-08 13:55 | NUR ---
PT RESTING IN RECLINER WITH EYES CLOSED, RESPIRATIONS EVEN AND UNLABORED, O2 SAT 87%. PT PLACED ON BIPAP FOR SLEEPING. PT DENIES FURTHER NEEDS AT THIS TIME. CALL LIGHT IN REACH.
--- NOTE | 2024-05-08 15:12 | NUR ---
PT RESTING IN RECLINER, BIPAP IN PLACE, O2 SAT 96%. PT AWAKENS EASILY, DENIES NEEDS AT THIS TIME. CALL LIGHT IN REACH.
[2024-05-08] MEDS ORDERED: WARFARIN SOD 2.5 MG TAB PO SCH (16:00)
--- NOTE | 2024-05-08 20:30 | NUR ---
PT ASSISTED FROM CHAIR TO BED WITHOUT INCIDENT. PT REQUESTING DIET SPRITE. PT INFORMED THAT THIS IS LAST AVAILABLE INTAKE UNTIL 0600 BASED ON 2L FLUID RESTRICTION. PT VERBALIZES UNDERSTANDING, DENIES ADDITIONAL NEEDS. CALL LIGHT IN REACH, BED IN LOW, LOCKED POSITION. VSS AND NAD NOTED VIA CONTINUOUS MONITOR AND PT STATEMENT.
--- NOTE | 2024-05-08 20:35 | NUR ---
REPORT RECEIVED AND CARE ASSUMED FROM BROOKE SANCHEZ. VSS VIA CONTINUOUS MONITOR.
--- NOTE | 2024-05-08 22:02 | NUR ---
SHIFT ASSESSMENT COMPLETE. SEE [facility] FOR DETAILS. PT RESTING IN BED WATCHING TELEVISION. PT STATES HE IS READY FOR BED. PT STATES HE DOES NOT WANT TO WEAR BIPAP MASK, WANTS TO STAY ON 4L NC. PT REMAINS ON 4L NC, EDUCATED THAT BIPAP WILL BE PLACED IF NEEDED TO MAINTAIN OXYGENATION. PT VERBALIZED UNDERSTANDING. PT DENIES ADDITIONAL NEEDS. CALL LIGHT IN REACH, PERSONAL ITEMS IN REACH. BED IN LOW, LOCKED POSITION. VSS AND NAD NOTED VIA CONTINUOUS MONITOR, PT STATEMENT AND DIRECT OBS.
[2024-05-09] VITALS (8 sets, daily range): BP systolic 95–126; BP diastolic 70–82
--- NOTE | 2024-05-09 00:04 | NUR ---
PT RESTING IN BED WATCHING TELEVISION. PT REQUESTING MORE TO DRINK. PT REEDUCATED TO FLUID RESTRICTION. PT STATES "I NEED MORE TO DRINK BECAUSE I'M NOT PEEING ENOUGH". PT REASSURED UO HAS NOT BEED REDUCED. PT ASSURED URINE COLOR AND CLARITY IS IMPROVING. PT STATES "SO YOU'RE NOT GIVE ME MORE TO DRINK?" PT REMINDED OF FLUID RESTRICTION. PT STATES INTENT TO SLEEP SOON AND DENIES ADDITIONAL NEEDS. VSS AND NAD NOTED VIA CONTINUOS MONITOR, DIRECT OBS AND PT STATEMENT.
--- NOTE | 2024-05-09 01:51 | NUR ---
PT REQUESTED AND PROVIDED SNACK. PT DENIES ADDITIONAL NEEDS.
--- NOTE | 2024-05-09 04:29 | NUR ---
SHIFT ASSESSMENT COMPLETE. [facility] PT RESTING IN BED WATCHING TELEVISION. BIPAP IN PLACE. WALKER PATENT. PT SELF REPOSITIONING. PT DENIES NEEDS AT THIS TIME. CALL LIGHT IN REACH. BED IN LOW, LOCKED POSITION. VSS AND NAD NOTED VIA DIRECT OBS AND CONTINUOUS MONITOR.
[2024-05-09 05:43] LABS: INR 3.46 (0.80-1.30); PROTIME 34.6 Sec (11.2-14.2)
--- NOTE | 2024-05-09 06:37 | NUR ---
PT RESTING IN BED WATCHING TELEVISION. DENIES NEEDS. VSS AND NAD VIA CONTINUOUS MONITOR AND DIRECT OBS.
--- NOTE | 2024-05-09 07:30 | NUR ---
REPORT RECIEVED FROM LITHOSTRIPPER RN. PATIENT ALERT AND ORIENTED AND CALLS APPROPRIATELY. CALL LIGHT IN REACH. BED IN LOWEST POSITION. PATIENT ON 3L NC.
[2024-05-09 07:31] LABS: BASOPHILS 0.7 % (0-2); EOSINOPHILS 0.6 % (0-6); HEMATOCRIT 54.1 % (35.0-50.0); HEMOGLOBIN 17.1 g/dL (12.0-18.0); LYMPHOCYTES 3.9 % (24-44); MCH 28.6 (27-36); MCHC 31.6 g/dl (30-36); MCV 90.6 fl (81-99); MONOCYTES 3.3 % (0-12); NEUTROPHILS 91.5 % (39-80); PLATELET COUNT 161 K/uL (140-440); RBC 5.97 M/ul (4.3-5.7); RDW 16.1 (10.5-15.0)
[2024-05-09 07:39] LABS: ANION GAP 7.8 (7-21); BUN/CREATININE RATIO 42.42 (6.0-28.6); CALCIUM 9.4 mg/dL (8.5-10.1); CREATININE, SERUM 0.99 mg/dL (0.70-1.30); POTASSIUM 4.8 mmol/L (3.5-5.1)
--- NOTE | 2024-05-09 07:43 | NUR ---
REPORT GIVEN AND CARE ENDORSED TO BROOKE QUACH AND BROOKE RENDON. VSS VIA CONTINUOUS MONITOR.
--- NOTE | 2024-05-09 09:45 | NUR ---
PATIENT UP TO THE CHAIR FOR BREAKFAST. PATIENT BLOOD SUGAR CHECKED AND PATIENT TRANSFERED WELL ON HIS OWN WITH NO ISSUES. PATIENT HAS A WALKER PRESENT. SCROTAL EDEMA PRESENT. UNABLE TO SEE PATIENTS PENIS D/T SWELLING. PATIENT DRAINING YELLOW URINE. SPOKE WITH MD ABOUT PATIENTS LABS AND OUTPUT. SEE EMAR FOR NEW ORDERS. PATIENT REPORTS HIS SCROTUM ARE NOT USUALLY THIS WOLLEN. PATIENT BREATH SOUNDS CLEAR AND DIMINISHED IN BASES. PATIENT DENIES MARY LUÍS THSI TIME. CALL LIGHT IN REACH.
[2024-05-09] MEDS ORDERED: metOLazone 5 MG TAB PO ONE (10:15)
[2024-05-09] MEDS ORDERED: ALBUMIN HUMAN 25% 100 ML BTL IV ONE (10:30)
--- NOTE | 2024-05-09 11:00 | NUR ---
PATIENT UP TO THE CHAIR AND TOLERATING WELL. PATIENT HAS CALL LIGHT IN REACH. PATIENT MEDICATIONS GIVEN WITH NO ISSUES. PATIENT GIVEN WASH CLOTH TO FRESHEN UP. PATIENT VISITING AND JOKING WITH STAFF. WALKER CATHETER DRAINING CLEAR YELLOW URINE. AIRPLANE PILOT WILL BE IN TO PROVIDE AM CARES.
--- NOTE | 2024-05-09 12:10 | NUR ---
OIL PUMP STATION OPERATOR CHIEF IN WITH PATIENT PROVIDING CARES. PATIENT NOW EATING LUNCH AT THIS TIME.
--- NOTE | 2024-05-09 13:51 | NUR ---
PATIENT RESTING IN THE CHAIR AT THIS TIME. PATIENT ON 2L NASAL CANNULA. PATIENT HAS WALKER PRESENT AND DRAINING CLEAR YELLOW URINE. PATIENT ALERT AND ORIENTED AND CALLS APPROPRIATELY.
--- NOTE | 2024-05-09 15:00 | NUR ---
RN IN ROOM TO ROUND ON PT - RESTING IN CHAIR, 2L NC IN PLACE. PT ALERT AND ORIENTED. WALKER CATH PATENT DRAINING PALE YELLOW URINE. PT DENIES NEEDS AT THIS TIME.
[2024-05-09] MEDS ORDERED: WARFARIN SOD 1 MG TAB PO SCH (16:00)
--- NOTE | 2024-05-09 16:00 | NUR ---
RN IN ROOM TO ADMINISTER MEDICATIONS. PT ASSISTED TO BATHROOM TO HAVE BM. REQUIRING 4L NC WITH AMBULATION. MILDLY IMPULSIVE WITH MOVEMENT AND WIDE FOOT STANCE MAKING HIM UNSTEADY.
--- NOTE | 2024-05-09 16:40 | NUR ---
UPDATED MD THAT PATIENT HAS HAD ALMOST 4L URINE OUTPUT. NEW ORDERS FOR LABS AT THIS ITME. PATIENT ON TELE MONITOR.
[2024-05-09 16:52] LABS: ANION GAP 5.6 (7-21); BUN/CREATININE RATIO 37.6 (6.0-28.6); CALCIUM 9.9 mg/dL (8.5-10.1); CREATININE, SERUM 1.25 mg/dL (0.70-1.30); MAGNESIUM 2.3 mg/dL (1.8-2.4); POTASSIUM 4.6 mmol/L (3.5-5.1)
--- NOTE | 2024-05-09 18:10 | NUR ---
PT ARRIVES TO ROOM IN BED ACCOMPANIED BY BROOKE MOONEY AND BROOKE CARRASQUILLO. REPORT RECIEVED FROM BROOKE CARRASQUILLO. VITALS COMPLETE. PT DENIES ANY NEEDS AT THIS TIME. CALL LIGHT IN REACH.
--- NOTE | 2024-05-09 18:30 | NUR ---
REPORT GIVEN TO WILLIAM COX ON [facility]. PATIENT TRANSFERED TO ROOM 112 VIA BED AND ORIENTED TO STAFF AND ROOMS. UPDATED ON PLAN OF CARE. PATIENT ON TELE 8. PATIENT WALKER EMPTIED PRIOR TO TRANSFER. PATIENT REMAINS ON 2L NC. PATIENT STATES "I FEEL SO MUCH BETTER THAN I HAVE". PATIENT HAS ORDER TO DC WALKER CATH. NO OTHER NEEDS AT THIS TIME.
--- NOTE | 2024-05-09 19:20 | NUR ---
SHIFT REPORT RECEIVED FROM DAYSHIFT BROOKE BUSTILLOS AT BEDSIDE. pt RESTING IN BED, EYES CLOSED. 2LNC, RR EVEN AND UNLABORED. NO DISTRESS NOTED. WALKER CATHETER IN PLACE, URINE LIGHT YELLOW IN COLOR. CALL LIGHT IN REACH AND BOARD UPDATED.
--- NOTE | 2024-05-09 21:18 | NUR ---
assessment complete, scheduled meds given-see emar. tele remains in place, afib per monitor. pt denies chest pain. cath care done, generalized scrotal/penile edema remains noted. fresh ice water provided. pt saline locked, iv site wnl. call light in reach. no additional needs or concerns.
--- NOTE | 2024-05-09 22:51 | NUR ---
scheduled solu-medrol given-see emar. pt reports he's ready for bipap. rt zita made aware. call light in reach.
--- NOTE | 2024-05-09 23:20 | NUR ---
bipap in place per rt zita- per rt settings 35% 19/05. scrotal sling repositioned via pillowcase. media intern rob in room and was second for skin assessment.
[2024-05-10] VITALS (8 sets, daily range): BP systolic 104–126; BP diastolic 63–75
--- NOTE | 2024-05-10 00:05 | NUR ---
ROUNDED ON pt, pt HAS BIPAP IN PLACE WATCHING VIDEO ON PHONE. SETTINGS PER RT WILMAN. NO NEEDS OR CONCERNS VERBALIZED, CALL LIGHT IN REACH.
--- NOTE | 2024-05-10 00:50 | NUR ---
[employer] OBTAINED VITALS AND I&O. PT STATES NO FURHTER NEEDS AT THIS TIME. PRIMARY RN IN ROOM. CALL LIGHT WITHIN REACH.
--- NOTE | 2024-05-10 00:52 | NUR ---
VS COMPLETED, ANOTHER 1150MLS OUTPUT NOTED. SCROTUM REMAINS HEAVILY EDEMATOUS-REMAINS IN PILLOW SLING. FOCUSED ASSESSMENT COMPLETE, NO ACUTE CHANGES. CALL LIGHT IN REACH.
--- NOTE | 2024-05-10 03:02 | NUR ---
CALL LIGHT ANSWERED. PT ASKED FOR MORE WATER AND DIDNT WANT TO WEAR BIPAP MASK ANYMORE. BANKING TEACHER UNABLE TO GIVE PT MORE WATER DUE TO FLUID RESTRICTION. BANKING TEACHER CHECKED WITH SEAM CLOSER ABOUT BIPAP MASK. RN CONFIRMED THAT IT WAS OKAY FOR PT TO TAKE OFF. BIPAP MACHINE PUT IN STANDBY MODE. PT STATES NO FURTHER NEEDS AT THIS TIME. CALL LIGHT WITHIN REACH.
--- NOTE | 2024-05-10 03:48 | NUR ---
rounded on pt, pt awake and resting in bed. 2lnc in place, cpox in room shows spo2 mid 90's, hr 80's-afib per monitor.
--- NOTE | 2024-05-10 05:15 | NUR ---
IN ROOM TO COLLECT VS, I&O'S. WALKER DC'D, CATHETER TIP INTACT. pt HAD SCANT AMOUNT YELLOW PENILE DISCHARGE NOTED, THOMAS CARE DONE AND pt EDUCATED TO USE CALL LIGHT BEFORE GETTING OOB TO ATTEMPT TO VOID. LAB IN ROOM TO COLLECT AM LABS THEN CORPORATE TRAVEL COORDINATOR TO COLLECT DAILY WEIGHT.
--- NOTE | 2024-05-10 05:59 | NUR ---
LEATHER FLESHER OBTAINED PT STANDING WEIGHT. PT HAD SMALL SMEAR SM. PT GIVEN NEW GOWN. PT THEN SBA TO CHAIR. PT AMBULATING WELL. PILLOWCASE TUCKED UNERSCROTUM TO RELIEVE PRESSURE FROM HANGING. PT STATES NO FURTHER NEEDS AT THIS TIME. CALL LIGHT WITHIN REACH.
[2024-05-10 06:18] LABS: INR 2.73 (0.80-1.30); PROTIME 28.6 Sec (11.2-14.2)
--- NOTE | 2024-05-10 06:37 | NUR ---
pt had a good shift overall, wore bipap from approx 1672-1570-rhmeiqcg per rt. when awake, pt wears 2lnc, not chronic. sba with ambulation, calls appropriately. vss, tele in place hx afib. iv site saline locked, scheduled steriods. zabala dc'd at approx 0510-pt yet to void. generalized scrotal/abd, and ble edema present. scrotal area elevated with pillow case hammock during the night. voided 3,600 mls this shift. denied pain and nausea, tolerating ada/2gm sodium diet with 2L/24hr fluid restriction.
--- NOTE | 2024-05-10 07:05 | NUR ---
RECIEVED REPORT FROM NIGHT NURSE AT 0705. PT WAS IN THE RESTROOM AND WAS WALKING BACK WITH NURSE SBA. PT WAS ABLE TO VOID BUT WITHOUT MEASUREMENT. BARREL TESTER WILL BLADDER SCAN. PT HAS NO OTHER REQUESTS OR CARES NEEDED AT THIS TIME CALL LIGHT WITHIN REACH
--- NOTE | 2024-05-10 07:41 | EKG ---
[facility] [address] [place], [place] [address] Signed Atrial fibrillation with rapid ventricular response with premature ventricular or aberrantly conducted complexes Left anterior fascicular block Anterolateral infarct , age undetermined Abnormal ECG No previous ECGs available Confirmed by Becky Bernal MD ([id number]) on 05/10/2024 7:41:14 AM Electronically Signed By: BECKY BERNAL 05/10/24 0741 PATIENT NAME: HIMANSHU MINOR ASHLEY Electrocardiogram DATE OF : 58 PHYSICIAN: BECKY BERNAL REPORT #: [id number] REPORT IS CONFIDENTIAL AND NOT TO BE RELEASED WITHOUT AUTHORIZATION
[2024-05-10 07:58] LABS: ANION GAP 3.3 (7-21); BUN/CREATININE RATIO 47.82 (6.0-28.6); CALCIUM 9.8 mg/dL (8.5-10.1); CREATININE, SERUM 0.92 mg/dL (0.70-1.30); POTASSIUM 4.3 mmol/L (3.5-5.1)
[2024-05-10 08:06] LABS: BASOPHILS 0.2 % (0-2); HEMATOCRIT 53.1 % (35.0-50.0); HEMOGLOBIN 16.9 g/dL (12.0-18.0); LYMPHOCYTES 4.5 % (24-44); MCH 28.5 (27-36); MCHC 31.8 g/dl (30-36); MCV 89.7 fl (81-99); MONOCYTES 4.1 % (0-12); NEUTROPHILS 91.2 % (39-80); PLATELET COUNT 149 K/uL (140-440); RBC 5.92 M/ul (4.3-5.7); RDW 15.7 (10.5-15.0)
--- NOTE | 2024-05-10 08:07 | NUR ---
ACOUSTICAL TILE PATTERNMAKER TRIED TO BLADDER SCAN PT. SCAN WAS UNABLE TO PEST CONTROL APPLICATOR BLADDER. A VERY SMALL [place] WOULD FLASH ON THE SCREEN FOR A SECOND AND THEN I WAS UNABLE TO FIND IT AGAIN TO GET AN OFFICIAL SCAN. RN IS AWARE. THERE IS A HAT IN THE PT TOILET TO MEASURE OUTPUT
--- NOTE | 2024-05-10 08:25 | NUR ---
EXPLOSIVE EXPERT EXPLAINED TO PT HIS FLUID RESTRICTION AND PT UNDERSTOOD. PT HAS HAD HIS 300 ML OF FREEWATER AND HIS 300 ML FOR BREAKFAST. NO FURTHER COMPLAINTS AND CALL LIGHT IS WITHIN REACH
--- NOTE | 2024-05-10 09:23 | NUR ---
MED REC COMPLETE
[2024-05-10] MEDS ORDERED: metOLazone 5 MG TAB PO ONE (09:30)
[2024-05-10] MEDS ORDERED: ALBUMIN HUMAN 25% 100 ML BTL IV ONE (09:30)
--- NOTE | 2024-05-10 11:50 | NUR ---
IN IV PUMP ALARMING. IV MEDICATION COMPLETE. PT SL AT THIS TIME. PT REPORTING TOILETING NEEDS. SBA FROM RECLINER TO RESTROOM. PT REQUESTING PRIVACY. PT INFORMED TO PULL CORD ON WALL WHEN DONE. PT AGREEABLE.
--- NOTE | 2024-05-10 11:52 | NUR ---
UR CONCURRENT CLINICAL REVIEW: [facility] INPT CRITERIA [facility] INPT 05/06/24 @ 1801 ORDER MATCHED REG CLINICALS SENT FOR AUTH TO [facility] PENDING FURTHER ASSESSMENT 05/13/24
--- NOTE | 2024-05-10 11:58 | NUR ---
pt in room watching television. no cares needed or requested at this time call light within reach
[2024-05-10] MEDS ORDERED: WARFARIN SOD 5 MG TAB PO SCH (16:00)
--- NOTE | 2024-05-10 21:09 | NUR ---
IN RECLAINER CHAIR, HOB ELEVATED, LE ELEVATED. ON 2LNC NOT CHRONIC. TELE IN PLACE AFIB RHYTHM, DENIES CP OR SOB WITH EXERTION, UP TO BRP, VOIDED QS. ABD LARGE FIRM NON TENDER, FAINT BOWEL TONES T/O. RED AND WARM. SCROTAL EDEMA REDNESS AND ERYTHEMA PRESENT. ELEVAETD WITH PILLOWS. SCANT AMOUNT AOF PINKISH DISHCARGE NOTED. DISCOLORATION AND EDEMAT O LE, 2+ PITTING EDEMA. FAINT PEDAL PULSES BILAT, MYCOTIC TOENAILS, LEGS ELEVATED. RECEIVED 7 UNITS SS INSULIN. NO C/O PAIN. PLEASANT AND COOPERATIVE. TOLERATING FLUID RESTRICTION WELL
--- NOTE | 2024-05-10 23:32 | NUR ---
back to bed from chair earlier in shift. , using CPAP, up to brp to void, used O2 NC, tolerated well, back to bed, scrotal area elevated with towels
--- NOTE | 2024-05-11 02:24 | NUR ---
pt UP SBA TO BATHROOM, VOIDED UNMEASURED AMOUNT AND BACK IN BED, BIPAP RESUMED, SETTINGS PER RT. CPOX AT BEDSIDE IN PLACE, TELE REMAISN IN PLACE, AFIB, HR WNL. SCROTAL EDEMA REMAINS PRESENT, PILLOW CASE SLING IN PLACE. REMAINING 150MLS FROM FLUID RESTRICTION PROVIDED ALONG WITH WARM BLANKET. CALL LIGHT IN REACH.
[2024-05-11 02:26] VITALS: BP 133/46
--- NOTE | 2024-05-11 03:04 | NUR ---
awake, playing with phone, using cpap, LE elevated. up to br a few minutes ago, Uses O2 2LNC at that time, tolerated well, Tele#8 in plcae afin rhythm
[2024-05-11 05:08] VITALS: BP 105/74
--- NOTE | 2024-05-11 05:15 | NUR ---
Awake, using Bipap/CPAP, on room air when walking to [facility], slight sob on return noted, sats 90% on room air, resp 20. no c/o pain. Back to recliner chair, legs elevated. scrotal sac elevated with towels. legs elevated. has not slept more than probably 1/2 to 1 hour tonight, has used BIPAP/cpap most of this shift or 2LNC O2 not chornic, currently on room air, will continue to reassess O2 needs. pleasnt and cooperative. standing daily weight 139.7KG
[2024-05-11 05:27] LABS: INR 2.51 (0.80-1.30); PROTIME 26.7 Sec (11.2-14.2)
--- NOTE | 2024-05-11 07:05 | NUR ---
REPORT RECIEVED FROM BROOKE AUGUSTIN. PT SITTING UP IN RECLINER. PT RESPONDS WHEN ADDRESSED. PT DENIES ANY NEEDS AT THIS TIME. CALL LIGHT IN REACH.
--- NOTE | 2024-05-11 08:00 | NUR ---
EQUIPMENT RECORDS SUPERVISOR ENTERED PT ROOM TO RECORD PT BG. RESULT WAS RECORDED IN THE EMAR. PT IS LAYING BACK IN HIS RECLINER. EQUIPMENT RECORDS SUPERVISOR BROUGHT PT 150ML OF FREE WATER AND WROTE THIS ON PT FLUID RESTRICTION CHART IN THE ROOM. PT STATES NO FURTHER NEEDS OR COMPLAINTS AT THIS TIME. CALL LIGHT IS WITHIN REACH
[2024-05-11 08:57] VITALS: BP 114/62
[2024-05-11] MEDS ORDERED: PREDNISONE20 MG PO (09:08)
[2024-05-11] MEDS ORDERED: METOPROLOL SUCC50 MG PO (09:14)
[2024-05-11] MEDS ORDERED: DILTIAZEM 24HR120 MG PO (09:14)
--- NOTE | 2024-05-11 09:21 | NUR ---
IN TO ADMINSITER MEDICAITONS, SEE MAR. PT SITTING UP IN RECLINER. PT RESPONDS WHEN ADDRESSED. PT DENIES ANY PAIN AT THIS TIME. PT DENIES ANY NUMBNESS OR TINGLING AT THIS TIME IN ANY EXTREMITIES. ASSESSMENT COMPLETE. LUNG SOUNDS CLEAR, YET DIMINISHED THROUGHOUT. BOWEL TONES ACTIVE. ABD DISTENTION NOTED. ABD FIRM WITH PALPATION. PT DENIES TENDERNESS OR PAIN TO ABD WITH PALPATION. HEART TONES IRREGUALR. PT DENIES FEELING SOB AT THIS TIME. PEDAL PULSES PALPABLE, FAINT. EDEMA NOTED TO BLE. PT REPORTING BEING DONE WITH BREAKFAST, TRAY REMOVED. PT DENIES ANY OTHER NEEDS AT THIS TIME. CALL LIGHT IN REACH.
--- NOTE | 2024-05-11 10:15 | NUR ---
IN TO ROUND ON PT. PT SITTING UP IN RECLINER AND RESPONDS WHEN ADDRESSED. PT REPORTING "FRIEND WILL BE HERE IN 20-25 MINUTES." VERBAL AND WRITTEN DC INSTRUCTIONS PROVIDED. EDUCATED PT ON KEEPING TRACK OF WEIGHT WELL AND LOOKING AT SODIUM CONTENT OF FOOD AND DRINKS, PT AGREEABLE. OFFERED SMOKING CESATION PACKET, PT REFUSES AT THIS TIME. QUESTIONS ANSWERED. PT VERBALIZES UNDERSTANDING. IV REMOVED WNL. PTs WALLET AND CLOTHES RETURNED. PT TELE DC'd PT BEING DISCHARGED. PT GETTING DRESSED. PT DENIES ANY OTHER NEEDS. CALL LIGHT IN REACH.
[2024-05-11 10:35] VITALS: BP 108/52
== END 2024-05-11 10:42 | disposition home or self-care (01) | DRG 291 ==
LOC: ED 14:46 → CCU 18:01 → MS 05-09 18:12
PROVIDERS: Emergency Medicine; ADMIT Internal Medicine; ATTEND Internal Medicine
PROC: 5A09357 Assistance with Respiratory Ventilation, Less than 24 Consecutive Hours, Continuous Positive Airway Pressure (ICD-10-PCS; principal; 2024-05-06)
DX: I11.0 Hypertensive heart disease with heart failure (principal); J96.21 Acute and chronic respiratory failure with hypoxia; J96.22 Acute and chronic respiratory failure with hypercapnia; J44.1 Chronic obstructive pulmonary disease with (acute) exacerbation; Z68.41 Body mass index [BMI] 40.0-44.9, adult; I50.9 Heart failure, unspecified; F17.210 Nicotine dependence, cigarettes, uncomplicated; E78.5 Hyperlipidemia, unspecified; E11.9 Type 2 diabetes mellitus without complications; E66.01 Morbid (severe) obesity due to excess calories; I48.91 Unspecified atrial fibrillation; I25.2 Old myocardial infarction; Z98.890 Other specified postprocedural states; Z79.51 Long term (current) use of inhaled steroids; Z79.01 Long term (current) use of anticoagulants; Z79.899 Other long term (current) drug therapy; Z79.4 Long term (current) use of insulin; Z79.84 Long term (current) use of oral hypoglycemic drugs
CPT/HCPCS: 36415; 36592; 51702; 71045; 80048; 80053; 81001; 82803; 83036; 83735; 83880; 84484; 85025; 85060; 85610; 93005; 93010; 94640; 94660; 94760; 94762; 99285-25; A9270; J0456; J1100; J1815; J1940; J2919; J7060; P9047